=== PATIENT | male | born 1955 | race Caucasian/White ===

== ENCOUNTER 2022-06-20 20:10 | Observation (INO) | payer MEDICARE, MEDICAID, SELFPAY ==
[2022-06-20] VITALS (11 sets, daily range): BP systolic 117–142; BP diastolic 57–69; PULSE 62–71; RESP 12–17; TEMP 36.7; O2SAT 94–98
--- NOTE | ~2022-06-20 | CT_ITS ---
CT head without contrast Indication: Altered mental status COMPARISON: 12/23/2018 Technique: Serial scans were obtained through the brain without the administration of contrast. Dose reduction technique was used on this scan by utilizing automated exposure control and iterative recon struction technique. The dose-length product (DLP) was 681.00 mGy-cm. Findings: There is no evidence of intracranial hemorrhage, mass lesion, or acute infarct. Extensive c hronic infarct is unchanged, diffusely involving the left occipital and temporal lobes, as well as ex tensively involving the left frontal and parietal lobes. The ventricles and subarachnoid spaces are d ilated, consistent with mild atrophy. Low attenuation regions are seen within the periventricular wh ite matter bilaterally, likely representing changes from chronic microvascular ischemic disease. Ther e is no evidence of edema, mass effect or midline shift. The visualized paranasal sinuses and masto id air cells are clear. Impression: No intracranial hemorrhage, mass, or acute infarct. Extensive left-sided chronic infarct, as detailed above, unchanged. Atrophy and chronic white matter changes, as above. Reviewed, dictated and finalized at location M. OR [employer]LE DATABASE ADMINISTRATOR Impression: No intracranial hemorrhage, mass, or acute infarct. Extensive left-sided chronic infarct, as detailed above, unchanged. Atrophy and chronic white matter changes, as above.
--- NOTE | ~2022-06-20 | XR_ITS ---
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 RESULT: Lines, tubes, and devices: None. Lungs and pleura: Low volumes with crowding. Reticular opacities, cuffing, and indistinct vessels. S treaky bibasilar atelectasis/scar. Cardiomediastinal silhouette: Stable. Other: No acute osseous or upper abdominal finding. IMPRESSION: Prominent opacities may represent mild interstitial edema in the appropriate clinical context. Reviewed, dictated and finalized at location K. T PRODUCTION WORKER IMPRESSION: Prominent opacities may represent mild interstitial edema in the appropriate cl inical context.
[2022-06-20 20:57] LABS: Basophils Percent Auto 0.2 % (0.2-1.2); Eosinophils Absolute Auto 0.1 K/mm3 (0-0.3); Hematocrit 34.5 % (42.0-52.0); Hemoglobin 10.7 g/dL (14.0-18.0); Immature Granulocyte Absolute 0.03 K/mm3 (0.00-0.031); Immature Granulocyte Percent A 0.3 % (0-0.5); Lymphocytes Absolute Auto 0.71 K/mm3 (0.9-3.2); Lymphocytes Percent Auto 8.1 % (18.3-44.2); Mean Corpuscular Hemoglobin 26.6 pg (26-34); Mean Corpuscular Volume 85.6 fl (80-100); Mean Platelet Volume 10.2 fl (7.4-10.4); Monocytes Absolute Auto 0.5 K/mm3 (0.1-0.6); Monocytes Percent Auto 5.8 % (2.6-8.5); Neutrophils Absolute Auto 7.4 K/mm3 (1.3-6.7); Neutrophils Percent Auto 84.6 % (45.5-73.1); Platelet Count Result 177 k/mm3 (150-375); Red Blood Count 4.03 M/mm3 (4.6-6.20); Red Cell Distribution Width 15.1 % (11.5-14.5); White Blood Count 8.8 K/mm3 (4.5-10.0)
[2022-06-20 21:03] LABS: INR 1.2; Partial Thromboplastin Time 31.8 SECONDS (22.3-36.8); Prothrombin Time 14.7 Seconds (11.1-14.7)
[2022-06-20 21:30] LABS: Alanine Aminotransferase 20 U/L (6-50); Albumin Level 3.5 g/dL (3.5-5.1); Alkaline Phosphatase 66 U/L (38-126); Anion Gap 6 mmol/L (8-16); Aspartate Amino Transferase 24 U/L (17-59); Bilirubin,Total 0.6 mg/dL (0.2-1.3); Blood Urea Nitrogen 24 mg/dL (9-20); Carbon Dioxide 27 mmol/L (22-30); Chloride 105 mmol/L (98-107); Estimated Glomerular Filt Rate > 60; Glucose 114 mg/dL (65-110); Sodium 138 mmol/L (137-145)
[2022-06-20 21:39] LABS: Troponin I < 0.012 ng/mL (0.000-0.034)
[2022-06-21] VITALS (10 sets, daily range): BP systolic 102–141; BP diastolic 49–90; PULSE 72–115; RESP 14–18; TEMP 36.1–36.3; O2SAT 95–99; BMI 23.3
[2022-06-21 01:10] LABS: Appearance Urine Cloudy (Clear); Bilirubin Urine Negative (Negative); Blood Urine 1+ (Negative); Color Urine Yellow (Yellow); Glucose Urine UA Negative (Negative); Ketones Urine Negative (Negative); Leukocyte Esterase Ur 3+ LEU/UL (Negative); Nitrate Urine Positive (Negative); Protein Urine 1+ mg/dL (Negative); Specific Grav Ur 1.015 (1.001-1.035); pH Urine 8.5 (5.0-9.0)
[2022-06-21 01:15] LABS: Add Urine Microscopic? YES; Bacteria Urine Trace /hpf; Calcium Oxalate Crystals Urine Present /hpf; Mucus Urine Rare /lpf; Squamous Epithelial Cell Urine Rare /hpf (Few); WBC Clumps Urine Present /HPF; WBC Urine >75 /hpf
--- NOTE | 2022-06-21 01:49 | ED.GENADULT ---
HPI - General Adult General Chief complaint: Altered Mental Status Stated complaint: AMS Time Seen by Provider: 06/20/22 20:14 History of Present Illness HPI narrative: Patient is a 67-year-old male with history of CVA who presents ER with abrupt change in mental status. Sent from senior care. Was found to be hypoglycemic by the senior care and they administered oral glucagon. They felt he was still altered when EMS arrived. Patient unable to provide history due to previous CVA. Related Data Allergies Allergy/AdvReac Type Severity Reaction Status Date / Time No Known Allergies Allergy Unverified 12/23/18 16:37 Review of Systems Review of Systems: ROS unobtainable: Yes unobtainable due to medical condition PMFSH Past Medical History Medical History (Updated 06/21/22 @ 04:28 by Tavo Kim MD) COPD (chronic obstructive pulmonary disease) CVA (cerebral vascular accident) Heart failure History of type 2 diabetes mellitus Hyperlipidemia Hypertension Seizures Surgical History Surgical History (Updated 06/21/22 @ 04:28 by Tavo Kim MD) Surgical history unknown Exam Narrative: GENERAL: Chronically ill-appearing, well-nourished, and in no acute distress. HEAD: Normocephalic, atraumatic. EYES: PERRL and EOMI. ENT: Mucous membranes moist. CHEST: Clear to auscultation. No respiratory distress. HEART: Regular rate and rhythm. Normal peripheral pulses. ABDOMEN: Soft, nontender, nondistended. SKIN: Warm, dry, no rash. NEURO: Awake and alert, slowly follows commands. Can speak but is not oriented. PSYCH: Normal mood and affect. Course Course Emergency Course: Patient with UTI. Concerning that he is having hypoglycemia in setting of infection. Will observe and treat with IV antibiotics and acute 4-hour Accu-Cheks. No recurrent hypoglycemia in the ER. Vital Signs Vital signs: Vital Signs Temperature 98.0 F 06/20/22 20:05 Pulse Rate 70 06/20/22 20:05 Respiratory Rate 16 06/20/22 20:05 Blood Pressure 117/62 06/20/22 20:05 Pulse Oximetry 96 06/20/22 20:05 Oxygen Delivery Room Air 06/20/22 20:05 Temperature 98.0 F 06/20/22 20:05 Pulse Rate 74 06/21/22 00:45 Respiratory Rate 17 06/20/22 21:01 Blood Pressure 127/61 06/20/22 21:01 Pulse Oximetry 98 06/20/22 21:30 Oxygen Delivery Room Air 06/20/22 20:05 Medical Decision Making Vital Signs Vital Signs: Vital Signs Temperature 98.0 F 06/20/22 20:05 Pulse Rate 70 06/20/22 20:05 Respiratory Rate 16 06/20/22 20:05 Blood Pressure 117/62 06/20/22 20:05 Pulse Oximetry 96 06/20/22 20:05 Oxygen Delivery Room Air 06/20/22 20:05 Temperature 98.0 F 06/20/22 20:05 Pulse Rate 74 06/21/22 00:45 Respiratory Rate 17 06/20/22 21:01 Blood Pressure 127/61 06/20/22 21:01 Pulse Oximetry 98 06/20/22 21:30 Oxygen Delivery Room Air 06/20/22 20:05 Lab Data 06/20/22 20:40 06/20/22 20:40 Labs: Lab Results 06/20/22 06/20/22 06/20/22 Range/Units 20:40 20:40 20:40 WBC 8.8 (4.5-10.0) K/mm3 RBC 4.03 L (4.6-6.20) M/mm3 Hgb 10.7 L (14.0-18.0) g/dL Hct 34.5 L (42.0-52.0) % MCV 85.6 (80-100) fl MCH 26.6 (26-34) pg MCHC 31.0 L (32-36) g/dl RDW 15.1 H (11.5-14.5) % Plt Count 177 (150-375) k/mm3 MPV 10.2 (7.4-10.4) fl Immature Gran % (Auto) 0.3 (0-0.5) % Neut % (Auto) 84.6 H (45.5-73.1) % Lymph % (Auto) 8.1 L (18.3-44.2) % Scott % (Auto) 5.8 (2.6-8.5) % Eos % (Auto) 1.0 (0-4.4) % Baso % (Auto) 0.2 (0.2-1.2) % Lymph # (Auto) 0.71 L (0.9-3.2) K/mm3 Scott # (Auto) 0.5 (0.1-0.6) K/mm3 Eos # (Auto) 0.1 (0-0.3) K/mm3 Baso # (Auto) 0.0 (0.0-0.1) K/mm3 Abs Immat Gran (auto) 0.03 (0.00-0.031) K/mm3 Absolute Neuts (auto) 7.4 H (1.3-6.7) K/mm3 Absolute Nucleated RBC 0.0 (0.0-0.012) K/mm3 Nucleated RBC % 0.0 (0.0-0.2) % PT 14.7 (11
[2022-06-21 01:54] LABS: Glucose Point of Care 126 mg/dl (65-105)
[2022-06-21 03:10] LABS: Influenza A QL RT-PCR Negative (Negative); Influenza B QL RT-PCR Negative (Negative); SARS-CoV-2 RNA PCR Negative
--- NOTE | 2022-06-21 03:21 | PM.IMHP ---
H&P: HPI History of Present Illness Date/Time: 06/21/22 03:21 Chief Complaint: Altered mental status Narrative: Patient is confused, history is taken from the ER physician 67 years old gentleman with history of diabetes on insulin, history of CVA, brought to ED because of altered mental status. Patient was found confused, EMS was called. When EMS arrived, patient was found to have hypoglycemia, patient was confused. Patient was given glucagon. patient was brought to ED for evaluation. In the ED, patient was found have dehydration, pyuria on urinalysis, hypokalemia. When I saw and examined patient in the ED, patient was awake, not able to answer questions. Patient receive antibiotics in the ED. glucose level becomes normal. We admit patient for further evaluation and management Review of Systems Review of Systems: ROS unobtainable: Yes unobtainable due to mental status Meds Home Medications and Allergies Allergies Allergy/AdvReac Type Severity Reaction Status Date / Time No Known Allergies Allergy Unverified 12/23/18 16:37 Vital Signs Vital Signs - 24 hr 06/20/22 20:05 06/20/22 20:05 06/20/22 20:17 Temperature 98.0 F Pulse Rate 70 71 Respiratory Rate 16 Blood Pressure 117/62 142/69 H Pulse Oximetry 96 94 Oxygen Delivery Room Air 06/20/22 20:18 Temperature Pulse Rate Respiratory Rate Blood Pressure Pulse Oximetry 94 Oxygen Delivery Exam Narrative: GENERAL: Ill-appearing in no acute distress. Well-nourished. - EYES: EOMI. Anicteric. - HENT: Moist mucous membranes. - LUNGS: Clear to auscultation bilaterally, no wheezing, rhonchi, or rales. - CARDIOVASCULAR: Regular rate and rhythm. No murmur. No JVD. - ABDOMEN: Soft, non-tender and non-distended. No palpable masses. - EXTREMITIES: No edema. Peripheral pulses 2+. Non-tender. - NEUROLOGIC: No focal neurological deficits. CN II-XII grossly intact. - PSYCHIATRIC: Awake, not oriented x 3. Appropriate mood: Lethargic. - SKIN: No rashes or lesions. Warm. - LYMPH: No cervical lymphadenopathy. H&P: Results Labs Labs: Short CBC 06/20/22 Range/Units 20:40 WBC 8.8 (4.5-10.0) K/mm3 Hgb 10.7 L (14.0-18.0) g/dL Hct 34.5 L (42.0-52.0) % Plt Count 177 (150-375) k/mm3 BMP 06/20/22 20:40 Sodium 138 Potassium 3.0 L Chloride 105 Carbon Dioxide 27 BUN 24 H Creatinine 1.20 Glucose 114 H Calcium 8.0 L Cardiac Enzymes 06/20/22 Range/Units 20:40 Troponin I < 0.012 (0.000-0.034) ng/mL Liver Function 06/20/22 Range/Units 20:40 Total Bilirubin 0.6 (0.2-1.3) mg/dL AST 24 (17-59) U/L ALT 20 (6-50) U/L Alkaline Phosphatase 66 (38-126) U/L Albumin 3.5 (3.5-5.1) g/dL Urine 06/21/22 Range/Units 00:59 Urine Color Yellow (Yellow) Urine Appearance Cloudy H (Clear) Urine pH 8.5 (5.0-9.0) Ur Specific [place] 1.015 (1.001-1.035) Urine Protein 1+ H (Negative) mg/dL Urine Glucose (UA) Negative (Negative) mg/dL Assessment and Plan Assessment and plan (1) Acute encephalopathy: Code(s): G93.40 - Encephalopathy, unspecified Status: Acute Assessment and Plan: Confused Likely secondary to UTI, dehydration, hypoglycemia Neuro check Fall precaution Treat underlying disease (2) Acute UTI: Code(s): N39.0 - Urinary tract infection, site not specified Status: Acute Assessment and Plan: Start Levaquin IV Follow-up urine culture (3) Hypoglycemia: Code(s): E16.2 - Hypoglycemia, unspecified Status: Acute Assessment and Plan: Per ER physician report, patient took the insulin at home on medication list Hold long-acting insulin Hypoglycemia protocol is initiated (4) Dehydration: Code(s): E86.0 - Dehydration Status: Acute Assessment and Plan: Start normal saline IV (5) Type 2 diabetes mellitus: Code(s): E11.9 - Type 2 diabetes mellitus without complic
--- NOTE | 2022-06-21 04:42 | ADMGEN ---
This patient, Alexy Ochoa, was admitted to 3 [facility] Surg Room 314-01. Patient/family oriented to hospital policies and general routines including ID bracelet, bed and alarms, visiting hours, pain management, procedures, bathroom and other care routines, personal items, smoking policy, room service/diet, and visiting hours. Information on how to activate the Rapid Response Team has been discussed. Patient/Family are encouraged to report perceived risks to care and to ask questions if they do not understand what they are told or what they should do.
[2022-06-21] MEDS: SODIUM CHLORIDE 0.9% IV 1,000 ML 100 ML IV CONT (05:31)
[2022-06-21 07:20] LABS: Anion Gap 9 mmol/L (8-16); Blood Urea Nitrogen 28 mg/dL (9-20); Calcium 8.2 mg/dL (8.4-10.2); Carbon Dioxide 25 mmol/L (22-30); Chloride 107 mmol/L (98-107); Estimated CRCL calculation 52 ml/min; Estimated Glomerular Filt Rate 51; Glucose 130 mg/dL (65-110); Potassium 2.9 mmol/L (3.4-5.0); Sodium 141 mmol/L (137-145)
[2022-06-21 07:52] LABS: Glucose Point of Care 150 mg/dl (65-105)
[2022-06-21] MEDS: hydroCHLOROthiazide 12.5 MG CAPSULE PO (09:10)
[2022-06-21] MEDS: CLOPIDOGREL BISULFATE 75 MG TABLET PO (09:10)
[2022-06-21] MEDS: ATORVASTATIN 40 MG TABLET PO (09:10)
[2022-06-21] MEDS: LOSARTAN POTASSIUM 100 MG TABLET PO (09:10)
[2022-06-21] MEDS: levETIRAcetam 250 MG TABLET 750 MG PO ×2 (09:10→20:16)
[2022-06-21] MEDS: carvediloL 12.5 MG TABLET PO (09:11)
[2022-06-21] MEDS: ENOXAPARIN 40 MG/0.4 ML SYRINGE SUB-Q (09:11)
[2022-06-21] MEDS: CITALOPRAM HYDROBROMIDE 10 MG TABLET PO (09:11)
[2022-06-21] MEDS: POTASSIUM CHLORIDE 20 MEQ PACKET (FOR LIQUID) PO ×2 (09:11→16:35)
[2022-06-21] MEDS: cloNIDine HCL 0.1 MG TABLET PO (09:13)
[2022-06-21 11:22] LABS: Glucose Point of Care 228 mg/dl (65-105)
--- NOTE | 2022-06-21 12:14 | PM.IMPN ---
Progress Note: A&P Assessment and Plan (1) Acute encephalopathy: Code(s): G93.40 - Encephalopathy, unspecified Status: Acute Assessment and Plan: Confused on admission. Likely secondary to UTI, dehydration, hypoglycemia Continue Neuro checks Q shift. Per nursing staff, alf reports patient is A&O x2. Patient is minimally cooperative with physical exam and unable to determined full orientation and if currently at baseline or not. Head CT shows extensive left chronic infarctions to the left frontal and left parietal regions. No acute abnormality noted Fall precaution Treat underlying disease Consider MRI brain if neuro status changes or does not return to baseline within the next 24-48 hours (2) Acute UTI: Code(s): N39.0 - Urinary tract infection, site not specified Status: Acute Assessment and Plan: UA suggestive of infection on admission with positive nitrates, 3+ leukocytes, greater than 75 wbc's in clumps and trace bacteria. No previous urine cultures for evaluation. Patient was treated with Levaquin IV 750 mg, started upon admission 06/21/22. Patient received Rocephin IV in the ED. Follow-up urine culture and adjust antibiotics accordingly (3) Hypoglycemia: Code(s): E16.2 - Hypoglycemia, unspecified Status: Acute Assessment and Plan: Per ER physician report, a glucose was 50. Patient took the insulin at home and takes approximately 50 units Detemir SQ and 10 unit novolog with meals TID. Continue Accu-Cheks a.c. HS with low-dose NovoLog sliding scale with meals. Point of care glucose 130-228 in the past 24 hours and patient is eating. Initiate low-dose Lantus 10 units subQ at HS with hold parameters for glucose less than 120 Hypoglycemia protocol is initiated (4) Dehydration: Code(s): E86.0 - Dehydration Status: Acute Assessment and Plan: Patient appeared dehydrated upon admission per notes and noted to have acute UTI Continue normal saline IV maintenance fluids until patient is taking good p.o. Monitor strict intake and output Monitor vital signs (5) Type 2 diabetes mellitus: Code(s): E11.9 - Type 2 diabetes mellitus without complications Status: Chronic Assessment and Plan: Chronic, insulin-dependent on basal bolus insulin as described above. Patient was hypoglycemic upon admission and insulin has been adjusted as per listed above. (6) Hypokalemia: Code(s): E87.6 - Hypokalemia Status: Acute Assessment and Plan: Potassium 3.0 on admission. Patient was started on potassium chloride 20 mEq b.i.d. p.o. 06/21/2022 potassium 2.9. Check magnesium level which was 1.7. Give additional 40 mEq p.o. potassium chloride and 40 mEq IV potassium Monitor chemistry and supplement potassium as needed. Hold hydrochlorothiazide Plan Code status: Full code Disposition patient is from alf, return when medically stable Time Spent With Patient Time: 30 minutes of time spent with patient assessment, review of documentation, labs, vitals, imaging and nursing notes in the past 24 Subjective Date/time seen: 06/21/22 12:14 The this 67-year-old male with insulin-dependent diabetes mellitus, previous stroke, unspecified heart failure, seizure disorder, hypertension and hyperlipidemia. Patient presented to the emergency department for evaluation of altered mental status and hypoglycemia. His ED workup suggested dehydration and UTI. Patient found lying in bed. He is minimally cooperative with exam. He replies yeah to most questions asked, but does not elaborate on symptoms, i.e. c/o pain. Nursing reports the patient is tolerating full liquids and thinks he did not like the food he was brought yesterday for dinner. No s/s aspiration. Review of Systems Review of Systems: ROS unobtainable: Yes unobtainable due to mental status Exam Narrative: GENERAL: Chronically Ill-appearing in no acute distr
[2022-06-21] MEDS: INSULIN ASPART (*BKC) 100 UNITS/ML SUB-Q (12:34)
[2022-06-21] MEDS: POTASSIUM CHLORIDE 20 MEQ TABLET 40 MEQ PO (12:34)
[2022-06-21] MEDS: MICONAZOLE NITRATE 2% CREAM 30 GM TUBE 1 APPLIC TOPICAL ×2 (12:34→20:40)
[2022-06-21] MEDS: POTASSIUM CHLORIDE INJ 40 MEQ in SODIUM CHLORIDE 0.9% IV 500 ML 130 MEQ IVPB (12:39)
[2022-06-21 13:09] LABS: Magnesium 1.7 mg/dL (1.6-2.3)
[2022-06-21 16:15] LABS: Glucose Point of Care 183 mg/dl (65-105)
[2022-06-21 17:06] LABS: Potassium 4.5 mmol/L (3.4-5.0)
[2022-06-21] MEDS: HYDROcodone/acetaminophen (*CRX) 5-325 MG TABLET 1 TAB PO (20:15)
[2022-06-21] MEDS: INSULIN GLARGINE (*BKC) 100 UNITS/ML 10 UNITS SUB-Q (20:38)
[2022-06-21 21:01] LABS: Glucose Point of Care 163 mg/dl (65-105)
--- NOTE | 2022-06-22 01:46 | PC.NURSE ---
Patient coughing with thin liquids. Has a very wet cough and crackles upon auscultation. Dr. Badillo notified. New orders received to put patient NPO until speech therapy can eval.
--- NOTE | 2022-06-22 05:26 | PC.NURSE ---
Patient refusing IV fluids after multiple attempts. Patient refuses to get IV infusion of levaquin. Patient became agitated and started yelling I said NO at this nurse when attempting to hook IV up to fluids/antibiotics.
--- NOTE | 2022-06-22 05:31 | PC.NURSE ---
Spoke with Dr. Badillo about patient refusing IV fluids/antibiotics. Dr. Badillo says okay to wait until ST sees patient to determine of okay for PO levaquin.
[2022-06-22 06:50] LABS: Basophils Absolute Auto 0.1 K/mm3 (0.0-0.1); Basophils Percent Auto 0.6 % (0.2-1.2); Eosinophils Absolute Auto 0.1 K/mm3 (0-0.3); Eosinophils Percent Auto 0.5 % (0-4.4); Hematocrit 34.9 % (42.0-52.0); Hemoglobin 10.7 g/dL (14.0-18.0); Immature Granulocyte Absolute 0.04 K/mm3 (0.00-0.031); Immature Granulocyte Percent A 0.4 % (0-0.5); Lymphocytes Absolute Auto 1.18 K/mm3 (0.9-3.2); Lymphocytes Percent Auto 10.9 % (18.3-44.2); Mean Corpuscular HGB Conc 30.7 g/dl (32-36); Mean Corpuscular Hemoglobin 27.3 pg (26-34); Mean Platelet Volume 10.4 fl (7.4-10.4); Monocytes Absolute Auto 1.2 K/mm3 (0.1-0.6); Monocytes Percent Auto 10.8 % (2.6-8.5); Neutrophils Absolute Auto 8.3 K/mm3 (1.3-6.7); Neutrophils Percent Auto 76.8 % (45.5-73.1); Platelet Count Result 141 k/mm3 (150-375); Red Blood Count 3.92 M/mm3 (4.6-6.20); White Blood Count 10.8 K/mm3 (4.5-10.0)
[2022-06-22 06:59] LABS: Alanine Aminotransferase 18 U/L (6-50); Albumin Level 3.1 g/dL (3.5-5.1); Alkaline Phosphatase 58 U/L (38-126); Anion Gap 3 mmol/L (8-16); Aspartate Amino Transferase 31 U/L (17-59); Bilirubin,Total 0.6 mg/dL (0.2-1.3); Blood Urea Nitrogen 29 mg/dL (9-20); Calcium 7.4 mg/dL (8.4-10.2); Carbon Dioxide 24 mmol/L (22-30); Chloride 105 mmol/L (98-107); Estimated CRCL calculation 56 ml/min; Estimated Glomerular Filt Rate 55; Glucose 146 mg/dL (65-110); Potassium 3.9 mmol/L (3.4-5.0); Sodium 132 mmol/L (137-145)
[2022-06-22 07:48] LABS: Glucose Point of Care 202 mg/dl (65-105)
[2022-06-22 08:46] VITALS: PULSE 80
[2022-06-22] MEDS: CLOPIDOGREL BISULFATE 75 MG TABLET PO (08:46)
[2022-06-22] MEDS: carvediloL 12.5 MG TABLET PO (08:46)
[2022-06-22] MEDS: ATORVASTATIN 40 MG TABLET PO (08:46)
[2022-06-22] MEDS: ENOXAPARIN 40 MG/0.4 ML SYRINGE SUB-Q (08:46)
[2022-06-22] MEDS: CITALOPRAM HYDROBROMIDE 10 MG TABLET PO (08:46)
[2022-06-22] MEDS: levETIRAcetam 250 MG TABLET 750 MG PO ×2 (08:46→20:04)
[2022-06-22] MEDS: LOSARTAN POTASSIUM 100 MG TABLET PO (08:47)
[2022-06-22] MEDS: POTASSIUM CHLORIDE 20 MEQ PACKET (FOR LIQUID) PO ×2 (08:48→17:10)
[2022-06-22] MEDS: MICONAZOLE NITRATE 2% CREAM 30 GM TUBE 1 APPLIC TOPICAL ×2 (08:48→20:04)
--- NOTE | 2022-06-22 08:48 | PM.IMPN ---
Progress Note: A&P Assessment and Plan (1) Acute encephalopathy: Code(s): G93.40 - Encephalopathy, unspecified Status: Acute Assessment and Plan: Confused on admission. Likely secondary to UTI, dehydration, hypoglycemia Continue Neuro checks Q shift. Per nursing staff, skilled nursing reports patient is A&O x2. Patient is minimally cooperative with physical exam and unable to determined full orientation and if currently at baseline or not. Head CT shows extensive left chronic infarctions to the left frontal and left parietal regions. No acute abnormality noted Fall precaution Treat underlying disease Appears at baseline. (2) Acute UTI: Code(s): N39.0 - Urinary tract infection, site not specified Status: Acute Assessment and Plan: UA suggestive of infection on admission with positive nitrates, 3+ leukocytes, greater than 75 wbc's in clumps and trace bacteria. No previous urine cultures for evaluation. Patient was treated with Levaquin IV 750 mg, started upon admission 06/21/22. Patient received Rocephin IV in the ED. urine culture with gram negative bacilli 100,000 CFU. final sensitivities pending.adjust antibiotics accordingly 06/22/22 will transition to oral levaquin 750 mg Q24 hours today (3) Hypoglycemia: Code(s): E16.2 - Hypoglycemia, unspecified Status: Acute Assessment and Plan: Per ER physician report, a glucose was 50. Patient took the insulin at home and takes approximately 50 units Detemir SQ and 10 unit novolog with meals TID. Continue Accu-Cheks a.c. HS with low-dose NovoLog sliding scale with meals. Point of care glucose 190-200s in the past 24 hours and patient is eating. increase Lantus 30 units subQ at HS with hold parameters Hypoglycemia protocol is initiated (4) Dehydration: Code(s): E86.0 - Dehydration Status: Acute Assessment and Plan: Patient appeared dehydrated upon admission per notes and noted to have acute UTI Saline lock IV fluids 06/22/22. Monitor strict intake and output Monitor vital signs (5) Type 2 diabetes mellitus: Code(s): E11.9 - Type 2 diabetes mellitus without complications Status: Chronic Assessment and Plan: Chronic, insulin-dependent on basal bolus insulin as described above. Patient was hypoglycemic upon admission and insulin has been adjusted as per listed above. (6) Hypokalemia: Code(s): E87.6 - Hypokalemia Status: Acute Assessment and Plan: Potassium 3.0 on admission. Patient was started on potassium chloride 20 mEq b.i.d. p.o. 06/21/2022 potassium 2.9. Check magnesium level which was 1.7. Give additional 40 mEq p.o. potassium chloride and 40 mEq IV potassium Monitor chemistry and supplement potassium as needed. 06/22 K 3.9, resume HCTZ Plan Code status: Full code Disposition patient is from skilled nursing, return when medically stable. Plan to discharge patient tomorrow if cultures show sensitivity to levaquin and patient continues to be stable. Subjective Date/time seen: 06/22/22 08:48 Interval history: Patient is a 67-year-old male with insulin-dependent diabetes mellitus, previous stroke, unspecified heart failure, seizure disorder, hypertension and hyperlipidemia.? Patient presented to the emergency department for evaluation of altered mental status and hypoglycemia.? His ED workup suggested dehydration and UTI. Patient found sleeping. He arouses easily and immediately reports no when asked questions. He is intermittently combative and did not participate with barium swallow study today. Nursing reports he is able to tolerate thickened liquids without s/s coughing. No fevers overnight. Review of Systems Review of Systems: ROS unobtainable: Yes unobtainable due to mental status Exam Narrative: GENERAL: no acute distress. Nontoxic appearing HEENT: pupils equal and round. Patient is tracking. Mucous membranes moist and p
--- NOTE | 2022-06-22 09:20 | PCSTNOTE ---
Bedside swallow eval completed this am; MBS recommended. Refer to EMR for results and recommendations. Level 6 diet with mildly thick liquids until MBS is completed.
--- NOTE | 2022-06-22 11:18 | PCOTNOTE ---
Attempted OT evaluation, despite education on participating with OT patient yelled NO! at therapist. Will follow.
--- NOTE | 2022-06-22 11:27 | PCPTNOTE ---
Attempted PT evaluation, pt refused. RN aware. Will follow.
[2022-06-22 11:56] LABS: Glucose Point of Care 195 mg/dl (65-105)
[2022-06-22] MEDS: cloNIDine HCL 0.1 MG TABLET PO (13:49)
[2022-06-22 16:43] LABS: Glucose Point of Care 191 mg/dl (65-105)
[2022-06-22 20:00] VITALS: O2SAT 98
[2022-06-22] MEDS: INSULIN GLARGINE (*BKC) 100 UNITS/ML 30 UNITS SUB-Q (20:40)
[2022-06-22 20:45] LABS: Glucose Point of Care 235 mg/dl (65-105)
[2022-06-23 08:04] LABS: Glucose Point of Care 142 mg/dl (65-105)
[2022-06-23 09:37] VITALS: PULSE 78
[2022-06-23] MEDS: LOSARTAN POTASSIUM 100 MG TABLET PO (09:37)
[2022-06-23] MEDS: hydroCHLOROthiazide 12.5 MG CAPSULE PO (09:37)
[2022-06-23] MEDS: carvediloL 12.5 MG TABLET PO (09:37)
[2022-06-23] MEDS: levoFLOXacin 750 MG TABLET PO (09:38)
[2022-06-23] MEDS: levETIRAcetam 250 MG TABLET 750 MG PO (09:38)
[2022-06-23] MEDS: ATORVASTATIN 40 MG TABLET PO (09:38)
[2022-06-23] MEDS: cloNIDine HCL 0.1 MG TABLET PO (09:38)
[2022-06-23] MEDS: ENOXAPARIN 40 MG/0.4 ML SYRINGE SUB-Q (09:38)
[2022-06-23] MEDS: CLOPIDOGREL BISULFATE 75 MG TABLET PO (09:38)
[2022-06-23] MEDS: POTASSIUM CHLORIDE 20 MEQ PACKET (FOR LIQUID) PO (09:38)
[2022-06-23] MEDS: MICONAZOLE NITRATE 2% CREAM 30 GM TUBE 1 APPLIC TOPICAL (09:38)
[2022-06-23] MEDS: CITALOPRAM HYDROBROMIDE 10 MG TABLET PO (09:38)
--- NOTE | 2022-06-23 09:39 | PCPTNOTE ---
Attempted PT evaluation, pt would not look at therapist and just shook his head no. Hospitalist contacted and agreed to therapy orders being discharge at this time due to pt refusing. RN aware.
--- NOTE | 2022-06-23 10:46 | PCOTNOTE ---
Pt. refusing therapy services. Hospitalist contacted and agreed to therapy orders being discharge at this time due to pt refusing. RN aware.
[2022-06-23 11:48] LABS: Glucose Point of Care 157 mg/dl (65-105)
--- NOTE | 2022-06-23 14:41 | PM.DS ---
DS: Admitting Diagnosis Discharge Date 06/23/2022 1441 Admitting Diagnosis Acute metabolic encephalopathy Urinary tract infection,?Acute Hypoglycemia Dehydration Type 2 diabetes mellitus, chronic Hypokalemia DS: Discharge Diagnosis Discharge Diagnosis (1) Acute encephalopathy: Code(s): G93.40 - Encephalopathy, unspecified Status: Acute Assessment and Plan: Confused on admission. Likely secondary to UTI, dehydration, hypoglycemia Continue Neuro checks Q shift. Per nursing staff, longterm reports patient is A&O x2. Patient is minimally cooperative with physical exam and unable to determined full orientation and if currently at baseline or not. Head CT shows extensive left chronic infarctions to the left frontal and left parietal regions. No acute abnormality noted Appeared at baseline at discharge. (2) Acute UTI: Code(s): N39.0 - Urinary tract infection, site not specified Status: Acute Assessment and Plan: UA suggestive of infection on admission with positive nitrates, 3+ leukocytes, greater than 75 wbc's in clumps and trace bacteria. No previous urine cultures for evaluation. Patient was treated with Levaquin IV 750 mg, started upon admission 06/21/22. Patient received Rocephin IV in the ED. urine culture with gram negative bacilli 100,000 CFU. final sensitivities pending.adjust antibiotics accordingly 06/22/22 transitioned to oral levaquin 750 mg Q24 hours as patient clinically improving. (3) Hypoglycemia: Code(s): E16.2 - Hypoglycemia, unspecified Status: Resolved Assessment and Plan: Per ER physician report, a glucose was 50. Patient took the insulin at home and takes approximately 50 units Detemir SQ and 10 unit novolog with meals TID. Continue Accu-Cheks a.c. HS with low-dose NovoLog sliding scale with meals. Point of care glucose 190-200s in the past 24 hours and patient is eating. increase Lantus 30 units subQ at HS with hold parameters Hypoglycemia protocol is initiated Lantus home dose decreased to 30 units Detemir at hs. (4) Dehydration: Code(s): E86.0 - Dehydration Status: Resolved Assessment and Plan: Patient appeared dehydrated upon admission per notes and noted to have acute UTI Saline lock IV fluids 06/22/22. Monitor strict intake and output Monitor vital signs (5) Type 2 diabetes mellitus: Code(s): E11.9 - Type 2 diabetes mellitus without complications Status: Chronic Assessment and Plan: Chronic, insulin-dependent on basal bolus insulin as described above. Patient was hypoglycemic upon admission and insulin has been adjusted as per listed above. (6) Hypokalemia: Code(s): E87.6 - Hypokalemia Status: Resolved Assessment and Plan: Potassium 3.0 on admission. Patient was started on potassium chloride 20 mEq b.i.d. p.o. 06/21/2022 potassium 2.9. Check magnesium level which was 1.7. Give additional 40 mEq p.o. potassium chloride and 40 mEq IV potassium Monitored chemistry and supplement potassium as needed. 06/22 K 3.9, resume HCTZ (7) Dysphagia: Code(s): R13.10 - Dysphagia, unspecified Status: Acute Assessment and Plan: unclear acute versus chronic, patient noted to have coughing with drinking. Speech therapy consulted and modified barium swallow study requested, however, patient was combative and testing was stopped. He was advanced to nectar thickened liquids and aspiration precautions. Patient appeared to tolerate well. DS: Summary Hospital Course Reason for hospitalization: altered mental status Hospital Course: Patient is a 67-year-old male with insulin-dependent diabetes mellitus, previous stroke, unspecified heart failure, seizure disorder, hypertension and hyperlipidemia.? Patient presented to the emergency department for evaluation of altered mental status and hypoglycemia.? His ED workup suggested hypoglycemia, dehydration and UT
[2022-06-23 16:36] LABS: EDCOVIDSCREEN Negative (Negative)
--- NOTE | 2022-06-23 17:52 | PC.NURSE ---
Attempted to call [facility] at 1700, 1725 and 1750 with no answer. Had Faxed the discharge education at 1700 and covid results. Charge nurse stated go ahead and send patient due to him coming from facility.
== END 2022-06-23 18:40 ==
LOC: ANHED 21:13 → ANH3MEDSUR 06-21 03:19 → ANHIMU 06-26 10:45
PROVIDERS: Nurse Practitioner Family; Admitting Provider Hospitalist; Emergency Provider Emergency Medicine; PCP Family Medicine; Visit Provider Student in an Organized Health Care Education/Training Program
DX: G93.40 Encephalopathy, unspecified (principal); N39.0 Urinary tract infection, site not specified; E86.0 Dehydration; E11.649 Type 2 diabetes mellitus with hypoglycemia without coma; E87.6 Hypokalemia; Z79.4 Long term (current) use of insulin; R13.10 Dysphagia, unspecified; E78.5 Hyperlipidemia, unspecified; G40.909 Epilepsy, unspecified, not intractable, without status epilepticus; I50.9 Heart failure, unspecified; I11.0 Hypertensive heart disease with heart failure; Z86.73 Personal history of transient ischemic attack (TIA), and cerebral infarction without residual deficits; Z20.822 Contact with and (suspected) exposure to COVID-19
CPT/HCPCS: 36415; 70450; 71046; 80048; 80053; 81001; 82948; 83735; 84132; 84484; 85025; 85610; 85730; 87077; 87086; 87186; 87426; 87636; 92610; 96365; 96366; 96367; 96372; 96375; 99285; A9270; C9803; G0378; J0696; J1650; J1815; J1956; J3480; J7030; J7040

== ENCOUNTER 2022-11-22 08:11 | Emergency (ER) | payer MEDICARE, MEDICAID, SELFPAY ==
--- NOTE | ~2022-11-22 | CT_ITS ---
EXAMINATION: CT brain wo con INDICATION: Head injury COMPARISON: 06/21/2022 TECHNIQUE: Standard unenhanced head CT. The dose-length product (DLP) was 681.00 mGy-cm. The mA was a djusted according to patient size. Iterative reconstruction technique was employed. FINDINGS: There is no acute intraparenchymal hemorrhage. No evidence of mass lesion. No evidence of a cute infarction. There is a large area of chronic encephalomalacia involving the left frontal, pariet al, temporal, and occipital lobes as well as left insula. Again noted is an old infarct of the right basal ganglia. There is mild periventricular and subcortical hypodensity probably related to small ve ssel ischemic disease. Intracranial calcified cerebral atherosclerosis is noted. There are no extra-a xial collections. There is no mass effect or midline shift. The orbits and soft tissues are unremarka ble. There is mild mucosal thickening of the paranasal sinuses. IMPRESSION: 1. Areas of prior infarction without acute intracranial abnormality. 2. Age related findings. Reviewed, dictated and finalized at location []
--- NOTE | ~2022-11-22 | CT_ITS ---
EXAMINATION: CT cervical spine wo con DATE: 11/22/2022 09:27 INDICATION: Head injury TECHNIQUE: Computed tomography (CT) of the cervical spine was performed without intravenous contrast. The dose-length product (DLP) was 524.63 mGy-cm. Automated exposure control and iterative reconstruc tion technique were employed. COMPARISON: 12/23/2018 FINDINGS: Bone alignment is normal. There is no fracture. The vertebral body heights are maintained. There is mild loss of intervertebral disc space height throughout the cervical spine. Multilevel mild to moderate facet and uncovertebral joint osteoarthritis is seen. There is a left mastoid effusion. IMPRESSION: 1. Mild cervical spondylosis without acute findings or significant interval change. Reviewed, dictated and finalized at location [] IMPRESSION: 1. Mild cervical spondylosis without acute findings or significant interval chapis nge.
[2022-11-22 08:19] VITALS: BP 135/87; PULSE 57; RESP 12; TEMP 36.2; O2SAT 98
--- NOTE | 2022-11-22 09:08 | ED.FALL ---
HPI - Fall General Chief Complaint: Fall Stated Complaint: fall Time Seen by Provider: 11/22/22 08:53 History of Present Illness HPI Narrative: Patient is a 67-year-old male with a history of CVA currently on anticoagulation here from his nursing facility after a fall with head injury. Patient denies any specific complaints. He was sent here for head imaging giving his history of anticoagulation. Spoke with the nurse who took report; this was a witnessed fall at his facility. Apparently, patient has frequent fits of anger where he throws himself out of his wheelchair. He had an episode this morning causing him to fall backwards out of his wheelchair and hit his head. No LOC. No lacerations or other injuries sustained. Related Data Home Medications Medication Instructions Recorded Confirmed acetaminophen 160 mg/5 mL oral 640 mg PO QID PRN Pain 06/21/22 06/21/22 suspension atorvastatin 40 mg tablet 40 mg PO DAILY 06/21/22 06/21/22 carvedilol 12.5 mg tablet 12.5 mg PO DAILY 06/21/22 06/21/22 citalopram 10 mg tablet 10 mg PO DAILY 06/21/22 06/21/22 clonidine HCl 0.1 mg tablet 0.1 mg PO DAILY 06/21/22 06/21/22 clopidogrel 75 mg tablet 75 mg PO DAILY 06/21/22 06/21/22 clotrimazole 1 % topical cream 1 applic topical BID PRN ringworm 06/21/22 06/21/22 glucagon 1 mg solution for 1 mg IM TID PRN Hypoglycemia 06/21/22 06/21/22 injection (Glucagon Emergency Kit) hydrochlorothiazide 12.5 mg tablet 12.5 mg PO DAILY 06/21/22 06/21/22 insulin aspart U-100 100 unit/mL 10 unit subcut TIDWM 06/21/22 06/21/22 subcutaneous solution (Novolog U-100 Insulin aspart) levetiracetam 750 mg tablet 750 mg PO BID 06/21/22 06/21/22 losartan 100 mg tablet 100 mg PO DAILY 06/21/22 06/21/22 Allergies Allergy/AdvReac Type Severity Reaction Status Date / Time No Known Allergies Allergy Verified 11/22/22 09:53 Review of Systems Review of Systems: Gen.: Denies fevers or chills Eyes: Denies eye pain or visual change ENT: Denies congestion Respiratory: Denies shortness of breath or cough CV: Denies chest pain or palpitations GI: Denies abdominal pain nausea, emesis or diarrhea denies burning, urgency, frequency or hematuria Musculoskeletal: Denies back pain or muscle pain Neuro: Denies numbness, tingling, weakness or focal weakness Skin: Denies rash Except as documented, all other systems reviewed and negative [facility] Past Medical History Medical History (Updated 11/22/22 @ 09:53 by Farrukh Carlton) COPD (chronic obstructive pulmonary disease) CVA (cerebral vascular accident) Heart failure History of type 2 diabetes mellitus Hyperlipidemia Hypertension Seizures Surgical History Surgical History (Updated 11/22/22 @ 09:53 by Farrukh Carlton) Surgical history unknown Social History Social History (System 11/22/22 @ 09:53 by Farrukh Carlton) Smoking status: Current every day smoker Tobacco type: cigarettes Alcohol intake: unknown Substance use: unknown Spiritual care concerns: No Exam Narrative: APPEARANCE: Alert male in no acute distress, shakes head yes or no as answers to questions, when he does speak there is profound dysarthria Head: Normocephalic and atraumatic. EYES: PERRLA/EOMI, conjunctivae clear NOSE: No nasal drainage EARS: External ear normal in appearance THROAT: Oropharynx is clear. Mucous membranes are moist. NECK: Supple. No adenopathy, no masses. RESPIRATORY: Airway patent, respirations nonlabored. Clear to auscultation bilaterally, no rales, rhonchi, wheezing. CARDIOVASCULAR: Regular rate and rhythm without murmurs, rubs, or gallops. ABDOMINAL: Normoactive bowel sounds. Soft, nontender, nondistended. No rebound tenderness or guarding. MUSCULOSKELETAL: Patient winces with palpation of the lower cervical spine. No step-offs. There is no apparent tenderness of the thoracic or lumbar spine. There is no tenderness to palpation along the bilateral humeral heads, elbows, wrists or hands. No tenderness to p
--- NOTE | 2022-11-22 09:25 | PC.NURSE ---
Pt to CT scan via stretcher at this time.
[2022-11-22 10:32] VITALS: BP 136/84; PULSE 55; RESP 12; O2SAT 97
== END 2022-11-22 11:11 ==
PROVIDERS: Emergency Provider Physician Assistant; PCP Hospitalist
DX: S09.90XA Unspecified injury of head, initial encounter (principal); J44.9 Chronic obstructive pulmonary disease, unspecified; I11.0 Hypertensive heart disease with heart failure; I50.9 Heart failure, unspecified; E11.9 Type 2 diabetes mellitus without complications; E78.5 Hyperlipidemia, unspecified; F17.210 Nicotine dependence, cigarettes, uncomplicated; Z86.73 Personal history of transient ischemic attack (TIA), and cerebral infarction without residual deficits; Z79.01 Long term (current) use of anticoagulants; Z79.4 Long term (current) use of insulin; W05.0XXA Fall from non-moving wheelchair, initial encounter
CPT/HCPCS: 70450; 72125; 99284

== ENCOUNTER 2023-02-23 17:53 | Inpatient (IN) | payer MEDICARE, MEDICAID, SELFPAY ==
[2023-02-23] VITALS (19 sets, daily range): BP systolic 111–184; BP diastolic 41–81; PULSE 85–103; RESP 16–30; TEMP 36.6–37.1; O2SAT 92–100; BMI 30.1
--- NOTE | ~2023-02-23 | CT_ITS ---
EXAMINATION: CT brain wo con INDICATION: Altered mental status COMPARISON: 11/22/2022 TECHNIQUE: Standard unenhanced head CT. The dose-length product (DLP) was 681.00 mGy-cm. The mA was a djusted according to patient size. Iterative reconstruction technique was employed. FINDINGS: No acute intraparenchymal hemorrhage. No evidence of mass lesion. No evidence of acute infa rction. Again noted is a chronic large infarct involving the left frontal, parietal, temporal, and oc cipital lobes as well as left insula. An old infarct of the right basal ganglia is also noted. There is ex vacuo enlargement of the left lateral ventricle. There is mild periventricular and subcortical hypodensity probably related to small vessel ischemic disease. Intracranial calcified cerebral athero sclerosis is noted. No extra-axial collections. No mass effect or midline shift. The orbits and soft tissues are unremarkable. There is mild mucosal thickening of the paranasal sinuses. IMPRESSION: 1. Areas of prior infarction without acute intracranial abnormality. 2. Age related findings. Reviewed, dictated and finalized at location F.
--- NOTE | ~2023-02-23 | XR_ITS ---
EXAMINATION: XR chest 1V INDICATION: Altered mental status TECHNIQUE: AP view of the chest is obtained. COMPARISON: 06/20/2022 FINDINGS: The lungs are free of acute opacities. No pleural effusion or pneumothorax. The cardiomedia stinal silhouette is normal. IMPRESSION: 1. No acute cardiopulmonary abnormality. Reviewed, dictated and finalized at location F.
--- NOTE | ~2023-02-23 | CT_ITS ---
EXAMINATION: CT abdomen pelvis w con INDICATION: Altered mental status TECHNIQUE: Computed tomographic images of the abdomen and pelvis were obtained after the administrati on of 100 cc of Omnipaque 350 intravenous contrast. The dose-length product (DLP) was 1095.58 mGy-cm. Automated exposure control and iterative reconstruction technique were employed. COMPARISON: None available FINDINGS: Minimal dependent atelectasis is present in the lung bases. The heart size is normal. Evalu ation of the lung bases is limited by respiratory motion. The liver, spleen, pancreas, gallbladder, a nd adrenal glands are normal. There is a 4 mm nonobstructing stone right kidney. There is patchy perf usion of the right kidney. There is urothelial enhancement of the right renal pelvis as well as the r ight ureter. There is diffuse wall thickening of the urinary bladder. The bladder is decompressed by Lambert catheter. Cysts of the right kidney upper pole measure up to 2 cm. There is a 3.1 cm fusiform i nfrarenal abdominal aortic aneurysm. No pathologically enlarged abdominal or pelvic lymph nodes are i dentified. No free intraperitoneal gas or evidence of bowel obstruction. The appendix is normal. Ther e is fecal impaction of the rectum. IMPRESSION: 1. Probable cystitis with ascending urinary tract infection and right pyelonephritis. 2. Fecal impaction of the rectum. 3. Infrarenal abdominal aortic aneurysm. Reviewed, dictated and finalized at location F. IMPRESSION: 1. Probable cystitis with ascending urinary tract infection and right pyeloneph ritis. 2. Fecal impaction of the rectum. 3. Infrarenal abdominal aortic aneurysm.
--- NOTE | 2023-02-23 17:59 | ECG_ITS ---
Measurements Intervals [place] Rate: 97 P: 35 AR: 166 QRS: -24 QRSD: 109 T: 75 QT: 362 QTc: 461 Interpretive Statements SINUS RHYTHM DELAYED PRECORDIAL R/S TRANSITION INFERIOR INFARCT, AGE INDETERMINATE BORDERLINE ST-T WAVE ABNORMALITY- HIGH LATERAL LEADS ABNORMAL ECG NO PREVIOUS ECG AVAILABLE FOR COMPARISON Electronically Signed On 02-23-2023 20:12:58 CDT by Ovidio Gutierres D.O.
[2023-02-23 18:11] LABS: Basophils Percent Auto 0.3 % (0.2-1.2); Eosinophils Percent Auto 0.1 % (0-4.4); Hematocrit 36.3 % (42.0-52.0); Hemoglobin 11.9 g/dL (14.0-18.0); Immature Granulocyte Absolute 0.08 K/mm3 (0.00-0.031); Immature Granulocyte Percent A 0.6 % (0-0.5); Lymphocytes Absolute Auto 0.93 K/mm3 (0.9-3.2); Lymphocytes Percent Auto 6.7 % (18.3-44.2); Mean Corpuscular HGB Conc 32.8 g/dl (32-36); Mean Corpuscular Volume 85.4 fl (80-100); Mean Platelet Volume 10.9 fl (7.4-10.4); Monocytes Absolute Auto 1.3 K/mm3 (0.1-0.6); Monocytes Percent Auto 9.1 % (2.6-8.5); Neutrophils Absolute Auto 11.6 K/mm3 (1.3-6.7); Neutrophils Percent Auto 83.2 % (45.5-73.1); Platelet Count Result 174 k/mm3 (150-375); Red Blood Count 4.25 M/mm3 (4.6-6.20); Red Cell Distribution Width 14.6 % (11.5-14.5)
--- NOTE | 2023-02-23 18:20 | PC.NURSE ---
ATTEMPTED TO CHANGE PT INTO A GOWN AND SLAPPED MY HANDS AWAY AND THEN HE GRABBED MY HAND. WILL CHANGE PT INTO GOWN WHEN HE IS LESS AGITATED
[2023-02-23 18:32] LABS: INR 1.2; Prothrombin Time 15.4 Seconds (11.1-14.7)
[2023-02-23 18:33] LABS: Partial Thromboplastin Time 33.4 SECONDS (22.3-36.8)
[2023-02-23 18:59] LABS: Alanine Aminotransferase 23 U/L (6-50); Alkaline Phosphatase 79 U/L (38-126); Anion Gap 8 mmol/L (8-16); Aspartate Amino Transferase 52 U/L (17-59); Bilirubin,Total 1.2 mg/dL (0.2-1.3); Blood Urea Nitrogen 28 mg/dL (9-20); Calcium 8.4 mg/dL (8.4-10.2); Carbon Dioxide 26 mmol/L (22-30); Chloride 103 mmol/L (98-107); Estimated Glomerular Filt Rate 43; Glucose 157 mg/dL (65-110); Potassium 3.5 mmol/L (3.4-5.0); Sodium 137 mmol/L (137-145)
--- NOTE | 2023-02-23 19:09 | PC.NURSE ---
Report received from CRISTINA Collins. Assumed care of patient at this time.
--- NOTE | 2023-02-23 19:33 | PC.NURSE ---
Patient taken to imaging at this time via stretcher.
[2023-02-23 20:38] LABS: Lactic Acid Reflex 1.3 mmol/L (0.7-2.0)
[2023-02-23 20:48] LABS: Acetaminophen < 10 ug/mL (10-30); Ethanol < 10 mg/dL (<10); Salicylate < 1.0 mg/dL (2-20)
[2023-02-23 20:49] LABS: Troponin I 0.025 ng/mL (0.000-0.034)
[2023-02-23 20:58] LABS: Creatine Kinase 2515 U/L (55-170)
[2023-02-23] MEDS: SODIUM CHLORIDE 0.9% IV 1,000 ML 999 ML IV CONT (21:20)
--- NOTE | 2023-02-23 21:27 | ED.AMS ---
HPI - Altered Mental Status General Chief Complaint: Altered Mental Status Stated Complaint: altered mental status Time Seen by Provider: 02/23/23 19:04 History of Present Illness HPI narrative: HPI limited due to patient's altered mental status. This is a 68-year-old male, past history of diabetes, brought in by EMS from [facility] for altered mental status. The patient reportedly seems normal was around noon. Since then, the patient was seen grabbing at things that were not there. On my evaluation, the patient does not answer questions. Related Data Home Medications Medication Instructions Recorded Confirmed acetaminophen 160 mg/5 mL oral 640 mg PO QID PRN Pain 06/21/22 02/23/23 suspension atorvastatin 40 mg tablet 40 mg PO DAILY 06/21/22 02/23/23 carvedilol 12.5 mg tablet 12.5 mg PO BID 06/21/22 02/23/23 citalopram 10 mg tablet 10 mg PO DAILY 06/21/22 02/23/23 clonidine HCl 0.1 mg tablet 0.1 mg PO DAILY 06/21/22 02/23/23 clopidogrel 75 mg tablet 75 mg PO DAILY 06/21/22 02/23/23 clotrimazole 1 % topical cream 1 applic topical BID PRN ringworm 06/21/22 02/23/23 glucagon 1 mg solution for 1 mg IM TID PRN Hypoglycemia 06/21/22 02/23/23 injection (Glucagon Emergency Kit) hydrochlorothiazide 12.5 mg tablet 12.5 mg PO DAILY 06/21/22 02/23/23 insulin aspart U-100 100 unit/mL See Protocol subcut TIDWM 06/21/22 02/23/23 subcutaneous solution (Novolog U-100 Insulin aspart) levetiracetam 750 mg tablet 750 mg PO BID 06/21/22 02/23/23 losartan 100 mg tablet 100 mg PO DAILY 06/21/22 02/23/23 Vitamin D3 50 mcg PO DAILY 02/23/23 02/23/23 potassium chloride 20 mEq/15 mL 20 meq PO BID 02/23/23 02/23/23 oral liquid Allergies Allergy/AdvReac Type Severity Reaction Status Date / Time No Known Allergies Allergy Verified 11/22/22 09:53 Review of Systems Review of Systems: Unable to obtain review of systems due to altered mental status [facility] Past Medical History Medical History COPD (chronic obstructive pulmonary disease) CVA (cerebral vascular accident) Heart failure History of type 2 diabetes mellitus Hyperlipidemia Hypertension Seizures Surgical History Surgical History Surgical history unknown Social History Social History Smoking status: Former smoker Tobacco type: cigarettes Alcohol intake: unknown Substance use: unknown Spiritual care concerns: No Course Course Emergency Course: 22:16 - Chemistries demonstrate elevated creatinine of 1.6 (baseline 1.3). CK elevated to 2515. I am concerned the patient has developed rhabdomyolysis. UA consistent with UTI. I discussed the patient with hospitalist, Dr. Uribe who accepts admission. Vital Signs Vital signs: Vital Signs Pulse Rate 103 H 02/23/23 17:54 Respiratory Rate 20 02/23/23 17:54 Blood Pressure 140/59 L 02/23/23 17:54 Pulse Oximetry 94 02/23/23 17:54 Oxygen Delivery Room Air 02/23/23 17:54 Temperature 97.2 F L 02/24/23 20:50 Pulse Rate 80 02/24/23 20:50 Respiratory Rate 16 02/24/23 20:50 Blood Pressure 161/65 H 02/24/23 20:50 Pulse Oximetry 100 02/24/23 20:50 Oxygen Delivery Room Air 02/24/23 20:50 MDM - Altered Mental Status MDM Narrative Medical decision making narrative: Plan: Labs, imaging, EKG, troponin, reassess Differential Diagnosis Differential diagnosis: Likely alcoholic intoxication, hypoglycemia, hyponatremia and other (Intracranial hemorrhage, skull fracture, UTI, pneumonia, metabolic abnormality, rhabdomyolysis, other) Lab Data 02/25/23 05:42 02/24/23 05:44 Labs: Lab Results 02/23/23 02/23/23 02/23/23 Range/Units 18:06 18:38 20:17 WBC 14.0 H (4.5-10.0) K/mm3 RBC 4.25 L (4.6-6.20) M/mm3 Hgb 11.9 L (14.0-18.0) g/dL Hct 36.3 L (42.0-52.0) % MCV 85.4 (
[2023-02-23 21:51] LABS: Appearance Urine Turbid (Clear); Bacteria Urine 4+ /hpf; Bilirubin Urine Negative (Negative); Blood Urine 3+ (Negative); Color Urine Yellow (Yellow); Glucose Urine UA Negative (Negative); Ketones Urine Negative (Negative); Leukocyte Esterase Ur 3+ LEU/UL (Negative); Need Manual Microscopic Reviewed; Nitrate Urine Positive (Negative); Protein Urine 2+ mg/dL (Negative); RBC Urine 21-50 /hpf (0-2); Specific Grav Ur 1.014 (1.001-1.035); Squamous Epithelial Cell Urine Occasional /hpf (Few); WBC Urine >100 /hpf; pH Urine 5.5 (5.0-9.0)
[2023-02-23] MEDS: CEFEPIME 1 GM/NS 50 ML 1 GM/50 ML BAG IVPB (21:52)
[2023-02-23 21:54] LABS: Add Urine Microscopic? YES
--- NOTE | 2023-02-23 22:21 | PM.IMHP ---
H&P: HPI History of Present Illness Date/Time: 02/23/23 22:21 Chief Complaint: Patient transferred from long term via EMS for altered mental status Narrative: 68 years old unfortunate white male with history of stroke and multiple chronic medical issues was brought to the ER for evaluation by long term with complaint of altered mental status. Workup was done which showed finding consistent with a BANDAR, UTI and rhabdomyolysis. Patient was started on IV hydration and IV antibiotics. Could not get a good history because of altered mental status and patient is not answering questions. Spoke with the ER physician in detail. We'll admit him to the floor for IV hydration, IV antibiotics and close monitoring. Review of Systems Review of Systems: Unable to be obtained. Patient is pleasantly confused. ROS unobtainable: Yes unobtainable due to medical condition and unobtainable due to mental status [facility] Past Medical History Medical History COPD (chronic obstructive pulmonary disease) CVA (cerebral vascular accident) Heart failure History of type 2 diabetes mellitus Hyperlipidemia Hypertension Seizures Surgical History Surgical History Surgical history unknown Social History Social History Smoking status: Current every day smoker Tobacco type: cigarettes Alcohol intake: unknown Substance use: unknown Spiritual care concerns: No Meds Home Medications and Allergies Home Medications Medication Instructions Recorded Confirmed Type acetaminophen 160 mg/5 mL oral 640 mg PO QID PRN Pain 06/21/22 06/21/22 History suspension atorvastatin 40 mg tablet 40 mg PO DAILY 06/21/22 06/21/22 History carvedilol 12.5 mg tablet 12.5 mg PO DAILY 06/21/22 06/21/22 History citalopram 10 mg tablet 10 mg PO DAILY 06/21/22 06/21/22 History clonidine HCl 0.1 mg tablet 0.1 mg PO DAILY 06/21/22 06/21/22 History clopidogrel 75 mg tablet 75 mg PO DAILY 06/21/22 06/21/22 History clotrimazole 1 % topical cream 1 applic topical BID PRN ringworm 06/21/22 06/21/22 History glucagon 1 mg solution for 1 mg IM TID PRN Hypoglycemia 06/21/22 06/21/22 History injection (Glucagon Emergency Kit) hydrochlorothiazide 12.5 mg tablet 12.5 mg PO DAILY 06/21/22 06/21/22 History insulin aspart U-100 100 unit/mL 10 unit subcut TIDWM 06/21/22 06/21/22 History subcutaneous solution (Novolog U-100 Insulin aspart) levetiracetam 750 mg tablet 750 mg PO BID 06/21/22 06/21/22 History losartan 100 mg tablet 100 mg PO DAILY 06/21/22 06/21/22 History insulin detemir U-100 100 unit/mL 30 unit (0.3 mL) subcut HS #3 mL 06/23/22 06/21/22 Rx (3 mL) subcutaneous pen (Levemir FlexTouch U-100 Insulin) levofloxacin 750 mg tablet 750 mg PO DAILY #5 tabs 06/23/22 Rx potassium chloride 20 mEq/15 mL 20 meq (15 mL) PO BIDWM #450 mL 06/23/22 06/21/22 Rx oral liquid Allergies Allergy/AdvReac Type Severity Reaction Status Date / Time No Known Allergies Allergy Verified 11/22/22 09:53 Vital Signs Vital Signs - 24 hr 02/23/23 17:54 02/23/23 18:00 02/23/23 18:01 Temperature Pulse Rate 103 H 103 H Respiratory Rate 20 29 H Blood Pressure 140/59 L 111/41 L Pulse Oximetry 94 95 95 Oxygen Delivery Room Air Room Air 02/23/23 18:47 02/23/23 18:45 02/23/23 19:02 Temperature Pulse Rate 96 97 95 Respiratory Rate 30 H 24 H 27 H Blood Pressure 165/74 H 165/74 H Pulse Oximetry 96 97 96 Oxygen Delivery 02/23/23 19:31 02/23/23 19:46 02/23/23 20:03 Temperature Pulse Rate 99 92 93 Respiratory Rate 17 26 H 21 H Blood Pressure Pulse Oximetry 96 Oxygen Delivery 02/23/23 20:23 Temperature 37.1 C Pulse Rate 93 Respiratory Rate 24 H Blood Pressure Pulse Oximetry Oxygen Delivery Exam Narrative: PHYSICAL EXAMINATION: Vital signs: Please see the c
[2023-02-24] VITALS (7 sets, daily range): BP systolic 161–187; BP diastolic 65–82; PULSE 77–93; RESP 16–18; TEMP 36.2–36.8; O2SAT 98–100
[2023-02-24] MEDS: SODIUM CHLORIDE 0.9% IV 1,000 ML 150 ML IV CONT (00:08)
--- NOTE | 2023-02-24 00:32 | ADMGEN ---
This patient, Alexy Ochoa, was admitted to [facility] Surg Room 302-01. Patient/family oriented to hospital policies and general routines including ID bracelet, bed and alarms, visiting hours, pain management, procedures, bathroom and other care routines, personal items, smoking policy, room service/diet, and visiting hours. Information on how to activate the Rapid Response Team has been discussed. Patient/Family are encouraged to report perceived risks to care and to ask questions if they do not understand what they are told or what they should do.
--- NOTE | 2023-02-24 00:36 | PC.NURSE ---
At 2325, pt arrived to unit. BP was elevated at 184/87; pt was agitated and uncooperative. Dr. Uribe, overnight hospitalist, was notified of BP. stated he would put in the patient's home medications and look into PRN medications.
[2023-02-24] MEDS: KCL 20 MEQ/SW 100 ML 100 ML 50 MEQ IVPB (03:39)
--- NOTE | 2023-02-24 04:35 | PC.NURSE ---
At 0435, pt BP was 187/70. Dr. Uribe was notified. Order to give 0900 hydrochlorothiazide and carvedilol dose at this time.
[2023-02-24] MEDS: carvediloL 12.5 MG TABLET PO ×2 (04:38→20:49)
[2023-02-24] MEDS: hydroCHLOROthiazide 12.5 MG CAPSULE PO (04:39)
[2023-02-24 06:33] LABS: Basophils Percent Auto 0.3 % (0.2-1.2); Eosinophils Percent Auto 0.3 % (0-4.4); Hematocrit 35.4 % (42.0-52.0); Hemoglobin 11.2 g/dL (14.0-18.0); Immature Granulocyte Absolute 0.05 K/mm3 (0.00-0.031); Immature Granulocyte Percent A 0.4 % (0-0.5); Lymphocytes Percent Auto 7.5 % (18.3-44.2); Mean Corpuscular HGB Conc 31.6 g/dl (32-36); Mean Corpuscular Hemoglobin 27.7 pg (26-34); Mean Corpuscular Volume 87.4 fl (80-100); Mean Platelet Volume 11.2 fl (7.4-10.4); Monocytes Percent Auto 8.5 % (2.6-8.5); Platelet Count Result 158 k/mm3 (150-375); Red Blood Count 4.05 M/mm3 (4.6-6.20); Red Cell Distribution Width 14.5 % (11.5-14.5); White Blood Count 12.1 K/mm3 (4.5-10.0)
[2023-02-24 06:42] LABS: Anion Gap 5 mmol/L (8-16); Blood Urea Nitrogen 24 mg/dL (9-20); Calcium 7.8 mg/dL (8.4-10.2); Carbon Dioxide 25 mmol/L (22-30); Chloride 107 mmol/L (98-107); Estimated CRCL calculation 60 ml/min; Estimated Glomerular Filt Rate 55; Glucose 175 mg/dL (65-110); Magnesium 1.7 mg/dL (1.6-2.3); Phosphorus 3.2 mg/dL (2.5-4.5); Potassium 3.6 mmol/L (3.4-5.0); Sodium 137 mmol/L (137-145)
[2023-02-24 06:52] LABS: Creatine Kinase 2759 U/L (55-170)
[2023-02-24 07:48] LABS: Glucose Point of Care 166 mg/dl (65-105)
[2023-02-24] MEDS: CHOLECALCIFEROL 1,000 UNITS TABLET 2000 UNITS PO (08:20)
[2023-02-24] MEDS: CITALOPRAM HYDROBROMIDE 10 MG TABLET PO (08:20)
[2023-02-24] MEDS: levETIRAcetam 250 MG TABLET 750 MG PO ×2 (08:20→20:49)
[2023-02-24] MEDS: LOSARTAN POTASSIUM 100 MG TABLET PO (08:21)
[2023-02-24] MEDS: POTASSIUM CHLORIDE 20 MEQ PACKET (FOR LIQUID) PO ×2 (08:21→16:53)
[2023-02-24] MEDS: ATORVASTATIN 40 MG TABLET PO (08:21)
[2023-02-24] MEDS: CLOPIDOGREL BISULFATE 75 MG TABLET PO (08:21)
[2023-02-24] MEDS: cloNIDine HCL 0.1 MG TABLET PO (08:21)
[2023-02-24] MEDS: ENOXAPARIN 40 MG/0.4 ML SYRINGE SUB-Q (08:25)
[2023-02-24 11:48] LABS: Glucose Point of Care 166 mg/dl (65-105)
--- NOTE | 2023-02-24 12:54 | PCOTNOTE ---
Attempted OT evaluation. Combative and uncooperative at this time. Discussed this with Dr. Badillo who recommends therapy attempts again tomorrow in hopes of improved cooperation. Will continue to attempt.
--- NOTE | 2023-02-24 16:35 | PM.IMPN ---
Progress Note: A&P Assessment and Plan (1) Acute UTI: Code(s): N39.0 - Urinary tract infection, site not specified Status: Acute (2) Acute encephalopathy: Code(s): G93.40 - Encephalopathy, unspecified Status: Acute (3) Type 2 diabetes mellitus: Code(s): E11.9 - Type 2 diabetes mellitus without complications Status: Chronic (4) Dysphagia: Code(s): R13.10 - Dysphagia, unspecified Status: Acute (5) Rhabdomyolysis: Code(s): M62.82 - Rhabdomyolysis Status: Acute (6) BANDAR (acute kidney injury): Code(s): N17.9 - Acute kidney failure, unspecified Status: Acute Plan Acute metabolic encephalopathy Likely secondary to dehydration, electrolyte disorder and UTI Able to move all extremities Neuro check dehydration, BANDAR and rhabdomyolysis Patient given 1 L IV hydration in the ER followed by normal saline 150 cc/hour IV potassium supplementation order as patient has borderline potassium level Strict Is & Os Patient had CK level of to 2515 which will be monitored closely BUN creatinine is trending down UTI UA shows pyuria hematuria, cloudy Patient given 1 dose of IV cefepime in the ER Will start patient on IV Rocephin on the floor Follow-up on urine cultures and adjust antibiotics as needed Diabetes Patient started on Accu-Cheks with Insulin coverage as per protocol PT/OT evaluation ordered A coordination consult for DC planning back to [facility] when he is clinically stable for discharge Subjective Date/time seen: 02/24/23 16:35 Interval history: I saw on exam patient. Patient is somnolent, arousable, has no obvious distress. Patient has no complaints, basically unable to answer questions I reviewed labs, leukocytosis improving, BUN creatinine is trending down. Patient is afebrile, blood pressure stable. Exam Narrative: PHYSICAL EXAMINATION: Vital signs: Please see the chart General physical exam: patient is pleasantly confused, appears weak and tired Head/eyes: Atraumatic, EOMI, PERRLA ENT: +dry mucous membranes, nasal passages clear Neck: Supple, full range of motion, trachea midline CVS: S1 + S2, regular rate and rhythm, no murmurs Respiratory: Bilaterally fair air entry in both lung cespedes, mild B/L crackles, symmetric chest expansion, no distress Abdomen: Soft, non-tender, bowel sounds +ve, no organomegaly Extremities: No clubbing, no cyanosis, no edema, no calf tenderness Musculoskeletal: Moves all, decreased range of motion, no muscle spasms Skin: Warm, dry, no jaundice, no cyanosis Neurological: Not oriented x3 patient is pleasantly confused. Psychiatric: Unable to be obtained. Patient is pleasantly confused. Objective Data Vital Signs Vital Signs: Vital Signs - 24 hr 02/23/23 17:54 02/23/23 18:00 02/23/23 18:01 Temperature Pulse Rate 103 H 103 H Respiratory Rate 20 29 H Blood Pressure 140/59 L 111/41 L Pulse Oximetry 94 95 95 Oxygen Delivery Room Air Room Air 02/23/23 18:47 02/23/23 18:45 02/23/23 19:02 Temperature Pulse Rate 96 97 95 Respiratory Rate 30 H 24 H 27 H Blood Pressure 165/74 H 165/74 H Pulse Oximetry 96 97 96 Oxygen Delivery 02/23/23 19:31 02/23/23 19:46 02/23/23 20:03 Temperature Pulse Rate 99 92 93 Respiratory Rate 17 26 H 21 H Blood Pressure Pulse Oximetry 96 Oxygen Delivery 02/23/23 20:23 02/23/23 23:04 02/23/23 20:52 Temperature 98.7 F Pulse Rate 93 94 Respiratory Rate 24 H 24 H Blood Pressure 184/80 H Pulse Oximetry 92 Oxygen Delivery 02/23/23 21:37 02/23/23 21:46 02/23/23 22:04 Temperature Pulse Rate 93 91 89 Respiratory Rate 24 H 22 H 21 H Blood Pressure Pulse Oximetry Oxygen Delivery 02/23/23 22:15 02/23/23 22:32 02/23/23 23:03 Temperature Pulse Rate 88 86 85 Respiratory Rate 20 18 20 Blood Pressure Pulse Oximetry 97 Oxygen Delivery 02/23/23 23:18 02/23/23 23:20 0
[2023-02-24 16:47] LABS: Glucose Point of Care 182 mg/dl (65-105)
[2023-02-24] MEDS: SODIUM CHLORIDE 0.9% IV 1,000 ML 100 ML IV CONT (16:53)
[2023-02-24] MEDS: INSULIN GLARGINE (*BKC) 100 UNITS/ML 30 UNITS SUB-Q (20:53)
[2023-02-24 21:16] LABS: Glucose Point of Care 187 mg/dl (65-105)
[2023-02-25 06:06] LABS: Basophils Percent Auto 0.4 % (0.2-1.2); Eosinophils Percent Auto 0.5 % (0-4.4); Hematocrit 35.3 % (42.0-52.0); Hemoglobin 11.2 g/dL (14.0-18.0); Immature Granulocyte Absolute 0.03 K/mm3 (0.00-0.031); Immature Granulocyte Percent A 0.4 % (0-0.5); Lymphocytes Absolute Auto 0.87 K/mm3 (0.9-3.2); Lymphocytes Percent Auto 11.7 % (18.3-44.2); Mean Corpuscular HGB Conc 31.7 g/dl (32-36); Mean Corpuscular Hemoglobin 27.7 pg (26-34); Mean Corpuscular Volume 87.2 fl (80-100); Mean Platelet Volume 10.7 fl (7.4-10.4); Monocytes Absolute Auto 0.7 K/mm3 (0.1-0.6); Monocytes Percent Auto 8.7 % (2.6-8.5); Neutrophils Absolute Auto 5.8 K/mm3 (1.3-6.7); Neutrophils Percent Auto 78.3 % (45.5-73.1); Platelet Count Result 143 k/mm3 (150-375); Red Blood Count 4.05 M/mm3 (4.6-6.20); Red Cell Distribution Width 14.3 % (11.5-14.5); White Blood Count 7.4 K/mm3 (4.5-10.0)
[2023-02-25 06:15] VITALS: BP 192/74; PULSE 70; RESP 18; TEMP 36.5; O2SAT 100
[2023-02-25 06:36] LABS: Anion Gap 5 mmol/L (8-16); Blood Urea Nitrogen 20 mg/dL (9-20); Carbon Dioxide 30 mmol/L (22-30); Chloride 105 mmol/L (98-107); Creatine Kinase 1058 U/L (55-170); Estimated CRCL calculation 77 ml/min; Estimated Glomerular Filt Rate > 60; Glucose 161 mg/dL (65-110); Potassium 3.8 mmol/L (3.4-5.0); Sodium 140 mmol/L (137-145)
[2023-02-25] MEDS: hydrALAZINE HCL 20 MG/ML VIAL 10 MG IV PUSH (06:39)
[2023-02-25 07:44] LABS: Glucose Point of Care 140 mg/dl (65-105)
[2023-02-25] MEDS: ATORVASTATIN 40 MG TABLET PO (08:36)
[2023-02-25] MEDS: POTASSIUM CHLORIDE 20 MEQ PACKET (FOR LIQUID) PO ×2 (08:36→16:56)
[2023-02-25] MEDS: CHOLECALCIFEROL 1,000 UNITS TABLET 2000 UNITS PO (08:36)
[2023-02-25] MEDS: CITALOPRAM HYDROBROMIDE 10 MG TABLET PO (08:36)
[2023-02-25] MEDS: cloNIDine HCL 0.1 MG TABLET PO (08:36)
[2023-02-25 08:37] VITALS: PULSE 75
[2023-02-25] MEDS: levETIRAcetam 250 MG TABLET 750 MG PO ×2 (08:37→20:47)
[2023-02-25] MEDS: LOSARTAN POTASSIUM 100 MG TABLET PO (08:37)
[2023-02-25] MEDS: CLOPIDOGREL BISULFATE 75 MG TABLET PO (08:37)
[2023-02-25] MEDS: carvediloL 12.5 MG TABLET PO ×2 (08:37→20:47)
[2023-02-25] MEDS: ENOXAPARIN 40 MG/0.4 ML SYRINGE SUB-Q (08:43)
--- NOTE | 2023-02-25 09:27 | PM.IMPN ---
Progress Note: A&P Assessment and Plan (1) Acute UTI: Code(s): N39.0 - Urinary tract infection, site not specified Status: Acute (2) Acute encephalopathy: Code(s): G93.40 - Encephalopathy, unspecified Status: Acute (3) Type 2 diabetes mellitus: Code(s): E11.9 - Type 2 diabetes mellitus without complications Status: Chronic (4) Dysphagia: Code(s): R13.10 - Dysphagia, unspecified Status: Acute (5) Rhabdomyolysis: Code(s): M62.82 - Rhabdomyolysis Status: Acute (6) BANDAR (acute kidney injury): Code(s): N17.9 - Acute kidney failure, unspecified Status: Acute Plan Acute metabolic encephalopathy Likely secondary to dehydration, electrolyte disorder and UTI Able to move all extremities Neuro check Patient is awake, dehydration, BANDAR and rhabdomyolysis Patient given 1 L IV hydration in the ER followed by normal saline 150 cc/hour IV potassium supplementation order as patient has borderline potassium level Strict Is & Os Patient had CK level of to 2515 which will be monitored closely BUN creatinine is trending down UTI UA shows pyuria hematuria, cloudy Patient given 1 dose of IV cefepime in the ER Will start patient on IV Rocephin on the floor Follow-up on urine cultures: E coli and adjust antibiotics as needed Diabetes Patient started on Accu-Cheks with Insulin coverage as per protocol PT/OT evaluation ordered A coordination consult for DC planning back to jail when he is clinically stable for discharge Subjective Date/time seen: 02/25/23 09:27 Interval history: I saw on exam patient. Patient mental status is improving, alert, answer some questions, still confused, not oriented x3. , leukocytosis improving, BUN creatinine is trending down. Patient is afebrile, blood pressure stable. Exam Narrative: PHYSICAL EXAMINATION: Vital signs: Please see the chart General physical exam: patient is pleasantly confused, appears weak and tired Head/eyes: Atraumatic, EOMI, PERRLA ENT: +dry mucous membranes, nasal passages clear Neck: Supple, full range of motion, trachea midline CVS: S1 + S2, regular rate and rhythm, no murmurs Respiratory: Bilaterally fair air entry in both lung cespedes, mild B/L crackles, symmetric chest expansion, no distress Abdomen: Soft, non-tender, bowel sounds +ve, no organomegaly Extremities: No clubbing, no cyanosis, no edema, no calf tenderness Musculoskeletal: Moves all, decreased range of motion, no muscle spasms Skin: Warm, dry, no jaundice, no cyanosis Neurological: Not oriented x3 patient is pleasantly confused. Psychiatric: Unable to be obtained. Patient is pleasantly confused. Objective Data Vital Signs Vital Signs: Vital Signs - 24 hr 02/24/23 14:00 02/24/23 20:49 02/24/23 20:50 Temperature 98.3 F 97.2 F L Pulse Rate 77 80 80 Respiratory Rate 16 16 Blood Pressure 163/82 H 161/65 H Pulse Oximetry 98 100 Oxygen Delivery 02/24/23 20:50 02/25/23 06:15 02/25/23 08:37 Temperature 97.7 F Pulse Rate 70 75 Respiratory Rate 18 Blood Pressure 192/74 H Pulse Oximetry 100 Oxygen Delivery Room Air Intake/Output Intake/Output: Intake & Output 02/22/23 02/23/23 02/24/23 02/25/23 23:59 23:59 23:59 23:59 Intake Total 1050 50 Output Total 50 Balance 1000 50 Meds/Results Medications: Active Medications Generic Name Dose Route Start Last Admin Trade Name Freq PRN Reason Stop Dose Admin Acetaminophen 650 mg 02/23/23 22:38 Acetaminophen 325 Mg Tablet PO Q4H PRN Mild Pain (1-3) or Fever Acetaminophen 640 mg 02/24/23 00:41 Acetaminophen Elixir 325 Mg/10.15 Ml Udc PO QID PRN Pain 1-3 Al Hydrox/Mg Hydrox/Simethicone 30 ml 02/23/23 22:38 Mag Hydrox/Al Hydrox/Simeth 30 Ml Udc PO QID PRN Dyspepsia Atorvastatin Calcium 40 mg 02/24/23 09:00 02/25/23 08:36 Atorvastatin 40 Mg Tablet PO 4
--- NOTE | 2023-02-25 09:32 | PCPTNOTE ---
Attempted to see patient for evaluation, but he states no he does not want to attempt physical therapist and when asked if therapy can come back later he states no.
[2023-02-25] MEDS: SODIUM CHLORIDE 0.9% IV 1,000 ML 100 ML IV CONT ×2 (10:21→20:48)
--- NOTE | 2023-02-25 11:03 | PCOTNOTE ---
Attempted OT evaluation this AM. Patient replying no to all questions. Refusing any/all activity.
[2023-02-25 11:49] LABS: Glucose Point of Care 140 mg/dl (65-105)
--- NOTE | 2023-02-25 13:39 | PCPTNOTE ---
2nd attempt at PT evaluation this afternoon. Patient did sit EOB and take a drink of water. Patient declined to attempt a sit to stand or chair transfer to simulate WC transfer which he states he does at [place]. Physical therapy will attempt to see patient tomorrow.
[2023-02-25 14:00] VITALS: BP 175/63; PULSE 67; RESP 16; TEMP 36.4; O2SAT 99
[2023-02-25 16:38] LABS: Glucose Point of Care 139 mg/dl (65-105)
[2023-02-25 20:44] VITALS: BP 172/69; PULSE 69; RESP 16; TEMP 36.5; O2SAT 100
[2023-02-25 20:47] VITALS: PULSE 74
[2023-02-25] MEDS: INSULIN GLARGINE (*BKC) 100 UNITS/ML 30 UNITS SUB-Q (20:47)
[2023-02-25 20:49] LABS: Glucose Point of Care 158 mg/dl (65-105)
[2023-02-26 06:27] VITALS: BP 184/75; PULSE 70; RESP 16; TEMP 36.4; O2SAT 96
[2023-02-26 08:10] LABS: Anion Gap 6 mmol/L (8-16); Blood Urea Nitrogen 14 mg/dL (9-20); Calcium 7.3 mg/dL (8.4-10.2); Carbon Dioxide 25 mmol/L (22-30); Chloride 105 mmol/L (98-107); Creatine Kinase 390 U/L (55-170); Estimated CRCL calculation 94 ml/min; Estimated Glomerular Filt Rate > 60; Glucose 127 mg/dL (65-110); Sodium 136 mmol/L (137-145)
[2023-02-26 08:14] LABS: Basophils Percent Auto 0.2 % (0.2-1.2); Eosinophils Absolute Auto 0.1 K/mm3 (0-0.3); Eosinophils Percent Auto 1.5 % (0-4.4); Hematocrit 33.6 % (42.0-52.0); Hemoglobin 10.8 g/dL (14.0-18.0); Immature Granulocyte Absolute 0.03 K/mm3 (0.00-0.031); Immature Granulocyte Percent A 0.5 % (0-0.5); Lymphocytes Absolute Auto 1.29 K/mm3 (0.9-3.2); Lymphocytes Percent Auto 21.8 % (18.3-44.2); Mean Corpuscular HGB Conc 32.1 g/dl (32-36); Mean Corpuscular Hemoglobin 27.8 pg (26-34); Mean Corpuscular Volume 86.4 fl (80-100); Mean Platelet Volume 10.8 fl (7.4-10.4); Monocytes Absolute Auto 0.7 K/mm3 (0.1-0.6); Monocytes Percent Auto 11.8 % (2.6-8.5); Neutrophils Absolute Auto 3.8 K/mm3 (1.3-6.7); Neutrophils Percent Auto 64.2 % (45.5-73.1); Platelet Count Result 166 k/mm3 (150-375); Red Blood Count 3.89 M/mm3 (4.6-6.20); Red Cell Distribution Width 13.9 % (11.5-14.5); White Blood Count 5.9 K/mm3 (4.5-10.0)
--- NOTE | 2023-02-26 08:27 | PM.IMPN ---
Progress Note: A&P Assessment and Plan (1) Acute UTI: Code(s): N39.0 - Urinary tract infection, site not specified Status: Acute (2) Acute encephalopathy: Code(s): G93.40 - Encephalopathy, unspecified Status: Acute (3) Type 2 diabetes mellitus: Code(s): E11.9 - Type 2 diabetes mellitus without complications Status: Chronic (4) Dysphagia: Code(s): R13.10 - Dysphagia, unspecified Status: Acute (5) Rhabdomyolysis: Code(s): M62.82 - Rhabdomyolysis Status: Acute (6) BANDAR (acute kidney injury): Code(s): N17.9 - Acute kidney failure, unspecified Status: Acute Plan Acute metabolic encephalopathy Likely secondary to dehydration, electrolyte disorder and UTI Able to move all extremities Neuro check Patient is awake, dehydration, BANDAR and rhabdomyolysis Patient given 1 L IV hydration in the ER followed by normal saline 150 cc/hour IV potassium supplementation order as patient has borderline potassium level Strict Is & Os Patient had CK level of to 2515 which will be monitored closely BUN creatinine is trending down, stop normal saline 100 mL/hour Hypokalemia potassium 3.0, potassium chloride 40 mEq p.o. once and 20 mEq p. IV push 1 Follow-up BMP UTI UA shows pyuria hematuria, cloudy Patient given 1 dose of IV cefepime in the ER Will start patient on IV Rocephin on the floor Follow-up on urine cultures: E coli and adjust antibiotics as needed Diabetes Patient started on Accu-Cheks with Insulin coverage as per protocol PT/OT evaluation ordered A coordination consult for DC planning back to [facility] when he is clinically stable for discharge may discharge patient tomorrow if patient condition continues to improve Subjective Date/time seen: 02/26/23 08:27 Interval history: I saw on exam patient. Patient is still confused, but mental status continue to improve, patient is not not oriented x3 Exam Narrative: General physical exam: patient is pleasantly confused, appears weak and tired Head/eyes: Atraumatic, EOMI, PERRLA ENT: +dry mucous membranes, nasal passages clear Neck: Supple, full range of motion, trachea midline CVS: S1 + S2, regular rate and rhythm, no murmurs Respiratory: Bilaterally fair air entry in both lung cespedes, mild B/L crackles, symmetric chest expansion, no distress Abdomen: Soft, non-tender, bowel sounds +ve, no organomegaly Extremities: No clubbing, no cyanosis, no edema, no calf tenderness Musculoskeletal: Moves all, decreased range of motion, no muscle spasms Skin: Warm, dry, no jaundice, no cyanosis Neurological: Not oriented x3 patient is pleasantly confused. Psychiatric: Unable to be obtained. Patient is pleasantly confused. Objective Data Vital Signs Vital Signs: Vital Signs - 24 hr 02/25/23 08:37 02/25/23 08:30 02/25/23 14:00 Temperature 97.6 F Pulse Rate 75 67 Respiratory Rate 16 Blood Pressure 175/63 H Pulse Oximetry 99 Oxygen Delivery Room Air 02/25/23 20:47 02/25/23 20:44 02/26/23 06:27 Temperature 97.7 F 97.6 F Pulse Rate 74 69 70 Respiratory Rate 16 16 Blood Pressure 172/69 H 184/75 H Pulse Oximetry 100 96 Oxygen Delivery Intake/Output Intake/Output: Intake & Output 02/23/23 02/24/23 02/25/23 02/26/23 23:59 23:59 23:59 23:59 Intake Total 1050 50 2290 Output Total 50 Balance 1000 50 2290 Meds/Results Medications: Active Medications Generic Name Dose Route Start Last Admin Trade Name Freq PRN Reason Stop Dose Admin Acetaminophen 650 mg 02/23/23 22:38 Acetaminophen 325 Mg Tablet PO Q4H PRN Mild Pain (1-3) or Fever Acetaminophen 640 mg 02/24/23 00:41 Acetaminophen Elixir 325 Mg/10.15 Ml Udc PO QID PRN Pain 1-3 Al Hydrox/Mg Hydrox/Simethicone 30 ml 02/23/23 22:38 Mag Hydrox/Al Hydrox/Simeth 30 Ml Udc PO QID PRN Dyspepsia Atorvastatin Calcium 40 mg 02/24/23 09:00 02/25
--- NOTE | 2023-02-26 08:34 | PCPTNOTE ---
Attempted PT evaluation, pt refused and only stated no to all of the therapist questions. RN aware. Will follow.
--- NOTE | 2023-02-26 08:40 | PC.NURSE ---
Patient refusing medications and breakfast.
[2023-02-26 09:30] LABS: Glucose Point of Care 127 mg/dl (65-105)
[2023-02-26] MEDS: KCL 20 MEQ/SW 100 ML 100 ML 50 MEQ IVPB (09:40)
--- NOTE | 2023-02-26 10:36 | PCOTNOTE ---
Pt. attempted to see pt. for occupational therapy evaluation. Pt. refuses to participate at this time. Nursing aware. Following.
[2023-02-26] MEDS: LOSARTAN POTASSIUM 100 MG TABLET PO (11:05)
[2023-02-26] MEDS: CLOPIDOGREL BISULFATE 75 MG TABLET PO (11:05)
[2023-02-26] MEDS: levETIRAcetam 250 MG TABLET 750 MG PO (11:05)
[2023-02-26] MEDS: cloNIDine HCL 0.1 MG TABLET PO (11:06)
[2023-02-26] MEDS: ENOXAPARIN 40 MG/0.4 ML SYRINGE SUB-Q (11:06)
[2023-02-26] MEDS: ATORVASTATIN 40 MG TABLET PO (11:06)
[2023-02-26 11:07] VITALS: PULSE 72
[2023-02-26] MEDS: carvediloL 12.5 MG TABLET PO (11:07)
[2023-02-26] MEDS: CHOLECALCIFEROL 1,000 UNITS TABLET 2000 UNITS PO (11:07)
[2023-02-26] MEDS: CITALOPRAM HYDROBROMIDE 10 MG TABLET PO (11:08)
[2023-02-26] MEDS: POTASSIUM CHLORIDE 20 MEQ PACKET (FOR LIQUID) PO ×2 (12:17→16:57)
[2023-02-26] MEDS: POTASSIUM CHLORIDE 20 MEQ PACKET (FOR LIQUID) 40 MEQ PO (12:17)
[2023-02-26 12:25] LABS: Glucose Point of Care 159 mg/dl (65-105)
[2023-02-26 12:30] VITALS: BMI 30.1
[2023-02-26 14:00] VITALS: BP 140/60; PULSE 66; RESP 20; TEMP 36.6; O2SAT 100
[2023-02-26 15:32] LABS: Anion Gap 5 mmol/L (8-16); Blood Urea Nitrogen 13 mg/dL (9-20); Calcium 7.5 mg/dL (8.4-10.2); Carbon Dioxide 26 mmol/L (22-30); Chloride 105 mmol/L (98-107); Estimated CRCL calculation 85 ml/min; Estimated Glomerular Filt Rate > 60; Glucose 168 mg/dL (65-110); Sodium 136 mmol/L (137-145)
--- NOTE | 2023-02-26 15:58 | PM.DS ---
DS: Admitting Diagnosis Discharge Date 02/26/23 Admitting Diagnosis (1) Acute UTI: ?Code(s): N39.0 - Urinary tract infection, site not specified ?Status:?Acute (2) Acute encephalopathy: ?Code(s): G93.40 - Encephalopathy, unspecified ?Status:?Acute (3) Type 2 diabetes mellitus: ?Code(s): E11.9 - Type 2 diabetes mellitus without complications ?Status:?Chronic (4) Dysphagia: ?Code(s): R13.10 - Dysphagia, unspecified ?Status:?Acute (5) Rhabdomyolysis: ?Code(s): M62.82 - Rhabdomyolysis ?Status:?Acute (6) BANDAR (acute kidney injury): ?Code(s): N17.9 - Acute kidney failure, unspecified ?Status:?Acute DS: Discharge Diagnosis Discharge Diagnosis (1) Acute UTI: Code(s): N39.0 - Urinary tract infection, site not specified Status: Acute (2) Acute encephalopathy: Code(s): G93.40 - Encephalopathy, unspecified Status: Acute (3) Type 2 diabetes mellitus: Code(s): E11.9 - Type 2 diabetes mellitus without complications Status: Chronic (4) Dysphagia: Code(s): R13.10 - Dysphagia, unspecified Status: Acute (5) Rhabdomyolysis: Code(s): M62.82 - Rhabdomyolysis Status: Acute (6) BANDAR (acute kidney injury): Code(s): N17.9 - Acute kidney failure, unspecified Status: Acute DS: Summary Hospital Course Hospital Course: 67 years old gentleman with history of diabetes on insulin, history of CVA, brought to ED because of altered mental status.? Patient was found confused, EMS was called.? When EMS arrived, patient was found to have hypoglycemia, patient was confused.? Patient was given glucagon. ? patient was brought to ED for evaluation.? In the ED, patient was found have dehydration, pyuria on urinalysis, hypokalemia.? When I saw and examined patient in the ED, patient was awake, not able to answer questions.? Patient receive antibiotics in the ED. glucose level becomes normal.? We admit patient for further evaluation and management the following medical issues have been addressed during hospitalization Acute metabolic encephalopathy has dementia and mental status worse than the baseline poa. Likely secondary to dehydration, electrolyte disorder and UTI Able to move all extremities Neuro check Patient is awake, able to answer questions, still confused, possible close to baseline dehydration, BANDAR and rhabdomyolysis Patient given 1 L IV hydration in the ER followed by normal saline 150 cc/hour IV potassium supplementation order as patient has borderline potassium level Strict Is & Os Patient had CK level of to 2515 which will be monitored closely BUN creatinine is trending down, stop normal saline 100 mL/hour Hypokalemia potassium 3.0, potassium chloride 40 mEq p.o. once and 20 mEq p. IV push 1 Follow-up BMP Corrected UTI UA shows pyuria hematuria, cloudy Patient given 1 dose of IV cefepime in the ER start patient on IV Rocephin on the floor 02/24 Follow-up on urine cultures: E coli and adjust antibiotics as needed c/w with augmentin after discharge Diabetes Hypokalemia, likely secondary to poor intake. Hypoglycemic protocol was initiated Patient started on Accu-Cheks with Insulin coverage as per protocol resume home meds aftr discharge. Adjust medications per primary care doctor PT/OT evaluation ordered A coordination consult for DC planning back to long-term when he is clinically stable for discharge Time Spent with Patient Time attestation: Total time spent providing and/or coordinating discharge services: Exam Narrative: General physical exam: patient is pleasantly confused, appears weak and tired Head/eyes: Atraumatic, EOMI, PERRLA ENT: moist mucous membranes, nasal passages clear Neck: Supple, full range of motion, trachea midline CVS: S1 + S2, regular rate and rhythm, no murmurs Respiratory: Bilaterally fair air entry in both lung cespedes, mild B/L crackles, sy
== END 2023-02-26 18:00 | DRG 689 ==
LOC: ANHED 22:43 → ANH3MEDSUR 22:57
PROVIDERS: Emergency Medicine; Admitting Provider Family Medicine; Emergency Provider Preventive Medicine Aerospace Medicine; PCP Hospitalist; Visit Provider Hospitalist
DX: N39.0 Urinary tract infection, site not specified (principal); G93.41 Metabolic encephalopathy; M62.82 Rhabdomyolysis; N17.9 Acute kidney failure, unspecified; B96.20 Unspecified Escherichia coli [E. coli] as the cause of diseases classified elsewhere; E86.0 Dehydration; E11.9 Type 2 diabetes mellitus without complications; E78.5 Hyperlipidemia, unspecified; I11.0 Hypertensive heart disease with heart failure; I50.9 Heart failure, unspecified; D72.829 Elevated white blood cell count, unspecified; J44.9 Chronic obstructive pulmonary disease, unspecified; F03.90 Unspecified dementia, unspecified severity, without behavioral disturbance, psychotic disturbance, mood disturbance, and anxiety; E87.6 Hypokalemia; R31.9 Hematuria, unspecified; R13.10 Dysphagia, unspecified; Z79.4 Long term (current) use of insulin; Z86.73 Personal history of transient ischemic attack (TIA), and cerebral infarction without residual deficits; Z87.891 Personal history of nicotine dependence
CPT/HCPCS: 36415; 70450; 71045; 74177; 80048; 80053; 80307; 81001; 82550; 82948; 83605; 83735; 84100; 84484; 85025; 85610; 85730; 87077; 87086; 87186; 93005; 96365; 99285; A9270; J0360; J0692; J0696; J1650; J1815; J3480; J7030; Q9967

== ENCOUNTER 2023-03-26 14:15 | Emergency (ER) | payer MEDICARE, MEDICAID, SELFPAY ==
--- NOTE | ~2023-03-26 | CT_ITS ---
EXAMINATION: CT brain wo con DATE: 03/26/2023 15:14 INDICATION: Patient fell out of wheelchair and struck head. TECHNIQUE: Computed tomography (CT) of the head was performed without intravenous contrast. The mA wa s adjusted according to patient size. Iterative reconstruction technique was employed. Exam dose: 68 1.00 mGy-cm total exam DLP. COMPARISON: 02/23/2023 CT brain FINDINGS: Extensive chronic encephalomalacia involving the left cerebral hemisphere, involving the ma jority of distribution of the left middle and posterior cerebral arteries, unchanged since 02/23/2023. Chronic right basal ganglia lacunar infarct. There is moderately prominent central and cortical cerebral and mild cerebellar atrophy. No intracranial mass lesion or hemorrhage or recent cerebrovascular accident, midline shift or mass e ffect effect or subdural or epidural hematoma is detected. There is nonspecific diminished attenuation cerebral white matter, likely due to chronic small vessel ischemic change. Prominent bilateral carotid siphon internal carotid artery calcifications are noted . Left mastoid effusions. The right mastoid air cells are normally developed and aerated. Included para nasal sinuses are unremarkable. No skull fracture or bone destruction is detected. IMPRESSION: No skull fracture or acute intracranial finding or significant change since 02/23/2023 Reviewed, dictated and finalized at [facility]. Reviewed, dictated and finalized at [facility]. IMPRESSION: No skull fracture or acute intracranial finding or significant chapis nge since 02/23/2023
--- NOTE | ~2023-03-26 | CT_ITS ---
EXAMINATION: CT cervical spine wo con DATE: 03/26/2023 15:14 INDICATION: Patient fell out of wheelchair and struck head. TECHNIQUE: Computed tomography (CT) of the cervical spine was performed without intravenous contrast. Automated exposure control and iterative reconstruction technique were employed. Exam dose: 681.00 mGy-cm total exam DLP. COMPARISON: None FINDINGS: There is straightening of cervical spine which may be due to positioning or muscle spasm. T here is mild cervical levoscoliosis. C1 and C2 are normally aligned and the odontoid process is intact. No fracture or dislocation or lock ed facet or prevertebral soft tissue swelling. There is moderate degenerative disc disease at C4-5 and C5-C6 and mild degenerative disc disease at C 6-7. There is degenerative change at some of the apophyseal joints, to a greater extent on the right side. . IMPRESSION: Straightening of the cervical spine and mild cervical levoscoliosis Mild to moderate cervical spondylosis No fracture or dislocation or locked facet Reviewed, dictated and finalized at [facility]. Reviewed, dictated and finalized at [facility]. IMPRESSION: Straightening of the cervical spine and mild cervical levoscoliosi s Mild to moderate cervical spondylosis No fracture or dislocation or locked facet
[2023-03-26 14:38] VITALS: BP 122/76; PULSE 84; RESP 16; O2SAT 100
--- NOTE | 2023-03-26 14:39 | ED.GENADULT ---
HPI - General Adult General Chief complaint: Head Injury Stated complaint: fall/head injury Time Seen by Provider: 03/26/23 15:33 History of Present Illness HPI narrative: Alexy Ochoa is a 68 y/o male from [place] who arrives via EMS. Per report pt is oriented X 1 at baseline and fell out of his wheelchair striking his head with no LOC. Patient is note to have an abrasion/ hematoma to the back of his head. Patient is on Plavix Related Data Home Medications Medication Instructions Recorded Confirmed acetaminophen 160 mg/5 mL oral 640 mg PO QID PRN Pain 06/21/22 02/23/23 suspension atorvastatin 40 mg tablet 40 mg PO DAILY 06/21/22 02/23/23 carvedilol 12.5 mg tablet 12.5 mg PO BID 06/21/22 02/23/23 citalopram 10 mg tablet 10 mg PO DAILY 06/21/22 02/23/23 clonidine HCl 0.1 mg tablet 0.1 mg PO DAILY 06/21/22 02/23/23 clopidogrel 75 mg tablet 75 mg PO DAILY 06/21/22 02/23/23 clotrimazole 1 % topical cream 1 applic topical BID PRN ringworm 06/21/22 02/23/23 glucagon 1 mg solution for 1 mg IM TID PRN Hypoglycemia 06/21/22 02/23/23 injection (Glucagon Emergency Kit) hydrochlorothiazide 12.5 mg tablet 12.5 mg PO DAILY 06/21/22 02/23/23 insulin aspart U-100 100 unit/mL See Protocol subcut TIDWM 06/21/22 02/23/23 subcutaneous solution (Novolog U-100 Insulin aspart) levetiracetam 750 mg tablet 750 mg PO BID 06/21/22 02/23/23 losartan 100 mg tablet 100 mg PO DAILY 06/21/22 02/23/23 Vitamin D3 50 mcg PO DAILY 02/23/23 02/23/23 potassium chloride 20 mEq/15 mL 20 meq PO BID 02/23/23 02/23/23 oral liquid Allergies Allergy/AdvReac Type Severity Reaction Status Date / Time No Known Allergies Allergy Verified 11/22/22 09:53 [facility] Past Medical History Medical History COPD (chronic obstructive pulmonary disease) CVA (cerebral vascular accident) Heart failure History of type 2 diabetes mellitus Hyperlipidemia Hypertension Seizures Surgical History Surgical History Surgical history unknown Social History Social History Smoking status: Former smoker Tobacco type: cigarettes Alcohol intake: unknown Substance use: unknown Spiritual care concerns: No Course Vital Signs Vital signs: Vital Signs Pulse Rate 84 03/26/23 14:38 Respiratory Rate 16 03/26/23 14:38 Blood Pressure 122/76 03/26/23 14:38 Pulse Oximetry 100 03/26/23 14:38 Pulse Rate 84 03/26/23 14:38 Respiratory Rate 16 03/26/23 14:38 Blood Pressure 122/76 03/26/23 14:38 Pulse Oximetry 100 03/26/23 14:38 Medical Decision Making Vital Signs Vital Signs: Vital Signs Pulse Rate 84 03/26/23 14:38 Respiratory Rate 16 03/26/23 14:38 Blood Pressure 122/76 03/26/23 14:38 Pulse Oximetry 100 03/26/23 14:38 Pulse Rate 84 03/26/23 14:38 Respiratory Rate 16 03/26/23 14:38 Blood Pressure 122/76 03/26/23 14:38 Pulse Oximetry 100 03/26/23 14:38 Lab Data 03/26/23 15:26 03/26/23 15:26 Labs: Lab Results 03/26/23 Range/Units 15:26 WBC 8.1 (4.5-10.0) K/mm3 RBC 4.58 L (4.6-6.20) M/mm3 Hgb 12.6 L (14.0-18.0) g/dL Hct 40.1 L (42.0-52.0) % MCV 87.6 (80-100) fl MCH 27.5 (26-34) pg MCHC 31.4 L (32-36) g/dl RDW 14.7 H (11.5-14.5) % Plt Count 188 (150-375) k/mm3 MPV 10.5 H (7.4-10.4) fl Immature Gran % (Auto) 0.2 (0-0.5) % Neut % (Auto) 71.8 (45.5-73.1) % Lymph % (Auto) 20.3 (18.3-44.2) % Bowie % (Auto) 6.1 (2.6-8.5) % Eos % (Auto) 1.1 (0-4.4) % Baso % (Auto) 0.5 (0.2-1.2) % Lymph # (Auto) 1.64 (0.9-3.2) K/mm3 Bowie # (Auto) 0.5 (0.1-0.6) K/mm3 Eos # (Auto) 0.1 (0-0.3) K/mm3 Baso # (Auto) 0.0 (0.0-0.1) K/mm3 Abs Immat Gran (auto) 0.02 (0.00-0.031) K/mm3 Absolute Neuts (auto) 5.8 (1.3-6.7) K/mm3 Absolute Nucleated RBC 0.0 (
[2023-03-26 15:32] LABS: Basophils Percent Auto 0.5 % (0.2-1.2); Eosinophils Absolute Auto 0.1 K/mm3 (0-0.3); Eosinophils Percent Auto 1.1 % (0-4.4); Hematocrit 40.1 % (42.0-52.0); Hemoglobin 12.6 g/dL (14.0-18.0); Immature Granulocyte Absolute 0.02 K/mm3 (0.00-0.031); Immature Granulocyte Percent A 0.2 % (0-0.5); Lymphocytes Absolute Auto 1.64 K/mm3 (0.9-3.2); Lymphocytes Percent Auto 20.3 % (18.3-44.2); Mean Corpuscular HGB Conc 31.4 g/dl (32-36); Mean Corpuscular Hemoglobin 27.5 pg (26-34); Mean Corpuscular Volume 87.6 fl (80-100); Mean Platelet Volume 10.5 fl (7.4-10.4); Monocytes Absolute Auto 0.5 K/mm3 (0.1-0.6); Monocytes Percent Auto 6.1 % (2.6-8.5); Neutrophils Absolute Auto 5.8 K/mm3 (1.3-6.7); Neutrophils Percent Auto 71.8 % (45.5-73.1); Platelet Count Result 188 k/mm3 (150-375); Red Blood Count 4.58 M/mm3 (4.6-6.20); Red Cell Distribution Width 14.7 % (11.5-14.5); White Blood Count 8.1 K/mm3 (4.5-10.0)
[2023-03-26 15:41] LABS: Alanine Aminotransferase 20 U/L (6-50); Albumin Level 3.9 g/dL (3.5-5.1); Alkaline Phosphatase 82 U/L (38-126); Anion Gap 7 mmol/L (8-16); Aspartate Amino Transferase 22 U/L (17-59); Bilirubin,Total 0.7 mg/dL (0.2-1.3); Blood Urea Nitrogen 18 mg/dL (9-20); Calcium 8.6 mg/dL (8.4-10.2); Carbon Dioxide 26 mmol/L (22-30); Chloride 104 mmol/L (98-107); Estimated CRCL calculation 64 ml/min; Estimated Glomerular Filt Rate > 60; Glucose 124 mg/dL (65-110); Sodium 137 mmol/L (137-145)
[2023-03-26 15:43] LABS: Prothrombin Time 13.7 Seconds (11.1-14.7)
[2023-03-26 15:44] LABS: Partial Thromboplastin Time 27.8 SECONDS (22.3-36.8)
--- NOTE | 2023-03-26 16:23 | ED.HEATRA ---
HPI - Head Injury General Chief complaint: Head Injury Stated complaint: fall/head injury Time Seen by Provider: 03/26/23 15:33 History of Present Illness HPI Narrative: HPI limited by patient's nonverbal status This is a 68-year-old male, with history of stroke, brought in by EMS from his alf after a fall and head injury. Nursing staff at his facility states he was moving in his wheelchair, when he hit a curb, tilting backwards and falling, striking his head. They deny loss of consciousness or other obvious injury. The patient indicates pain of the scalp but has no other obvious complaints. Related Data Home Medications Medication Instructions Recorded Confirmed acetaminophen 160 mg/5 mL oral 640 mg PO QID PRN Pain 06/21/22 02/23/23 suspension atorvastatin 40 mg tablet 40 mg PO DAILY 06/21/22 02/23/23 carvedilol 12.5 mg tablet 12.5 mg PO BID 06/21/22 02/23/23 citalopram 10 mg tablet 10 mg PO DAILY 06/21/22 02/23/23 clonidine HCl 0.1 mg tablet 0.1 mg PO DAILY 06/21/22 02/23/23 clopidogrel 75 mg tablet 75 mg PO DAILY 06/21/22 02/23/23 clotrimazole 1 % topical cream 1 applic topical BID PRN ringworm 06/21/22 02/23/23 glucagon 1 mg solution for 1 mg IM TID PRN Hypoglycemia 06/21/22 02/23/23 injection (Glucagon Emergency Kit) hydrochlorothiazide 12.5 mg tablet 12.5 mg PO DAILY 06/21/22 02/23/23 insulin aspart U-100 100 unit/mL See Protocol subcut TIDWM 06/21/22 02/23/23 subcutaneous solution (Novolog U-100 Insulin aspart) levetiracetam 750 mg tablet 750 mg PO BID 06/21/22 02/23/23 losartan 100 mg tablet 100 mg PO DAILY 06/21/22 02/23/23 Vitamin D3 50 mcg PO DAILY 02/23/23 02/23/23 potassium chloride 20 mEq/15 mL 20 meq PO BID 02/23/23 02/23/23 oral liquid Allergies Allergy/AdvReac Type Severity Reaction Status Date / Time No Known Allergies Allergy Verified 11/22/22 09:53 Review of Systems Review of Systems: Review of systems limited due to patient's nonverbal status PMFSH Past Medical History Medical History COPD (chronic obstructive pulmonary disease) CVA (cerebral vascular accident) Heart failure History of type 2 diabetes mellitus Hyperlipidemia Hypertension Seizures Surgical History Surgical History Surgical history unknown Social History Social History Smoking status: Former smoker Tobacco type: cigarettes Alcohol intake: unknown Substance use: unknown Spiritual care concerns: No Exam Narrative: GENERAL: Well-developed, well-nourished, and in no acute distress. HEAD: Normocephalic, small abrasion of the right parietal scalp, without laceration. EYES: PERRLA and EOMI. ENT: Nares clear, no rhinorrhea or epistaxis. Mucous membranes moist. Oropharynx without tonsillar hypertrophy exudate or other lesions. NECK: Supple. No midline spine tenderness to palpation, no step-off or crepitus CHEST: Clear to auscultation. No respiratory distress. No wheezes rales or rhonchi HEART: Regular rate and rhythm. No murmur heard. Normal peripheral pulses. ABDOMEN: Soft, nontender, nondistended, normal active bowel sounds. EXTREMITIES: Normal range of motion. No edema. SKIN: Warm, dry, no rash. NEURO: Alert and oriented x3. Moving all 4 limbs purposefully. PSYCH: Normal mood and affect. Course Course Emergency Course: 16:23 - CT head and cervical spine negative. Labs unremarkable. I discussed the patient with nursing staff at his alf. They are comfortable with his return to the facility. Discussed return and emergency precautions including signs/symptoms concerning for intracranial hemorrhage. All questions answered to their satisfaction. Vital Signs Vital signs: Vital Signs Pulse Rate 84 03/26/23 14:38 Respiratory Rate 16 03/26/23 14:38 Blood Pressure 122/76 03/26/23 14:38 Puls
== END 2023-03-26 17:40 ==
PROVIDERS: Nurse Practitioner Family; Emergency Provider Preventive Medicine Aerospace Medicine; PCP Hospitalist
DX: S00.03XA Contusion of scalp, initial encounter (principal); V00.811A Fall from moving wheelchair (powered), initial encounter; J44.9 Chronic obstructive pulmonary disease, unspecified; I11.0 Hypertensive heart disease with heart failure; I50.9 Heart failure, unspecified; E11.9 Type 2 diabetes mellitus without complications; E78.5 Hyperlipidemia, unspecified; G40.909 Epilepsy, unspecified, not intractable, without status epilepticus; Z86.73 Personal history of transient ischemic attack (TIA), and cerebral infarction without residual deficits; Z87.891 Personal history of nicotine dependence; Z79.02 Long term (current) use of antithrombotics/antiplatelets; Z79.4 Long term (current) use of insulin
CPT/HCPCS: 36415; 70450; 72125; 80053; 85025; 85610; 85730; 99284

== ENCOUNTER 2023-04-18 15:35 | Emergency (ER) | payer MEDICARE, MEDICAID, SELFPAY ==
--- NOTE | ~2023-04-18 | CT_ITS ---
EXAMINATION: CT brain wo con DATE: 04/18/2023 16:21 INDICATION: Trauma. TECHNIQUE: Computed tomography (CT) of the head was performed without intravenous contrast. The dose- length product was 983.67 mGy-cm. Automated exposure control and iterative reconstruction technique w ere employed. COMPARISON: CT dated 03/26/2023 FINDINGS: Large chronic left hemispheric infarction with encephalomalacia involving the frontal, emiliana etal and occipital lobes. There are scattered moderate periventricular and subcortical white matter c hanges, most likely related to small vessel ischemic disease (microangiopathy). No ventriculomegaly o r midline shift. Study limited by motion artifact. No depressed skull fractures. Paranasal sinuses an d mastoids are pneumatized. IMPRESSION: 1. No acute intracranial abnormality. No significant interval change. Reviewed, dictated and finalized at location B. EOTYPER
--- NOTE | ~2023-04-18 | CT_ITS ---
EXAMINATION: CT cervical spine wo con DATE: 04/18/2023 16:21 INDICATION: Neck pain after trauma TECHNIQUE: Computed tomography (CT) of the cervical spine was performed without intravenous contrast. The dose-length product was 614 mGy-cm. Automated exposure control and iterative reconstruction tech [employer] were employed. COMPARISON: CT dated 03/26/2023 FINDINGS: Vertebral body heights are maintained. There is straightening of cervical lordosis. There i s levoscoliosis. There is multilevel facet and uncinate hypertrophy. Odontoid process is normal. Cran iovertebral junction within normal limits. No evidence for perched facet. IMPRESSION: 1. No acute abnormality of the cervical spine. Reviewed, dictated and finalized at location B. LE PRODUCT MANAGER
[2023-04-18 15:34] VITALS: BP 124/67; PULSE 64; RESP 20; TEMP 36.5
--- NOTE | 2023-04-18 16:13 | ED.GENADULT ---
HPI - General Adult General Chief complaint: Fall Stated complaint: fall Time Seen by Provider: 04/18/23 15:49 History of Present Illness HPI narrative: 68-year-old who presents to the department for evaluation after having a ground level fall. Patient is A&O x1 at baseline. Patient denies any complaints. Patient is on Plavix her nursing staff. Related Data Home Medications Medication Instructions Recorded Confirmed acetaminophen 160 mg/5 mL oral 640 mg PO QID PRN Pain 06/21/22 02/23/23 suspension atorvastatin 40 mg tablet 40 mg PO DAILY 06/21/22 02/23/23 carvedilol 12.5 mg tablet 12.5 mg PO BID 06/21/22 02/23/23 citalopram 10 mg tablet 20 mg PO DAILY 06/21/22 02/23/23 clonidine HCl 0.1 mg tablet 0.1 mg PO DAILY 06/21/22 02/23/23 clopidogrel 75 mg tablet 75 mg PO DAILY 06/21/22 02/23/23 clotrimazole 1 % topical cream 1 applic topical BID PRN ringworm 06/21/22 02/23/23 glucagon 1 mg solution for 1 mg IM TID PRN Hypoglycemia 06/21/22 02/23/23 injection (Glucagon Emergency Kit) hydrochlorothiazide 12.5 mg tablet 12.5 mg PO DAILY 06/21/22 02/23/23 insulin aspart U-100 100 unit/mL See Protocol subcut TIDWM 06/21/22 02/23/23 subcutaneous solution (Novolog U-100 Insulin aspart) levetiracetam 750 mg tablet 750 mg PO BID 06/21/22 02/23/23 losartan 100 mg tablet 100 mg PO DAILY 06/21/22 02/23/23 Vitamin D3 50 mcg PO DAILY 02/23/23 02/23/23 potassium chloride 20 mEq/15 mL 20 meq PO BID 02/23/23 02/23/23 oral liquid insulin glargine-yfgn 100 unit/mL 30 unit subcut QPM 04/18/23 subcutaneous solution megestrol 20 mg tablet mg 04/18/23 Allergies Allergy/AdvReac Type Severity Reaction Status Date / Time No Known Allergies Allergy Verified 04/18/23 15:48 Review of Systems Review of Systems: ROS unobtainable: Yes unobtainable due to medical condition PMFSH Past Medical History Medical History COPD (chronic obstructive pulmonary disease) CVA (cerebral vascular accident) Heart failure History of type 2 diabetes mellitus Hyperlipidemia Hypertension Seizures Surgical History Surgical History Surgical history unknown Social History Social History Smoking status: Former smoker Tobacco type: cigarettes Alcohol intake: unknown Substance use: unknown Spiritual care concerns: No Exam Narrative: APPEARANCE: Well appearing, no pain, no distress, well-nourished. HEAD: normocephalic, atraumatic. EYES: PERRLA/EOMI, conjunctivae clear. NOSE: Normal no drainage EARS:TMS clear with good light reflex. THROAT: Pharynx clear, no exudate. NECK: Supple. No adenopathy, no masses. RESPIRATORY: Airway patent, respirations nonlabored. Clear to auscultation bilaterally, no rales, rhonchi, wheezing. CARDIOVASCULAR: Regular rate and rhythm without murmurs rubs or gallops. ABDOMINAL: Soft, nontender, nondistended, normal bowel sounds MUSCULOSKELETAL: Moves all extremities. Strength/ROM intact, No edema, No calf tenderness. NEURO: Alert. Cranial nerves II through XII intact. Grossly intact SKIN: Warm, dry. Normal Color Course Course Emergency Course: 68-year-old male presents for evaluation after a fall at a local assisted. Patient denies any pain complaint. imaging was negative and patient was discharged back to his care facility. Vital Signs Vital signs: Vital Signs Temperature 97.7 F 04/18/23 15:34 Pulse Rate 64 04/18/23 15:34 Respiratory Rate 20 04/18/23 15:34 Blood Pressure 124/67 04/18/23 15:34 Temperature 97.7 F 04/18/23 15:34 Pulse Rate 70 04/18/23 17:55 Respiratory Rate 20 04/18/23 17:55 Blood Pressure 130/64 04/18/23 17:55 Medical Decision Making Vital Signs Vital Signs: Vital Signs Temperature 97.7 F 04/18/23 15:34 Pulse Rate 64 04/18/23 15:34 Respiratory Rate
[2023-04-18 17:55] VITALS: BP 130/64; PULSE 70; RESP 20
== END 2023-04-18 18:20 | disposition home or self-care (01) ==
PROVIDERS: Emergency Provider Emergency Medicine; PCP Hospitalist
DX: S09.90XA Unspecified injury of head, initial encounter (principal); J44.9 Chronic obstructive pulmonary disease, unspecified; E78.5 Hyperlipidemia, unspecified; E11.9 Type 2 diabetes mellitus without complications; I50.9 Heart failure, unspecified; Z86.73 Personal history of transient ischemic attack (TIA), and cerebral infarction without residual deficits; Z87.891 Personal history of nicotine dependence; Z79.4 Long term (current) use of insulin; W18.30XA Fall on same level, unspecified, initial encounter
CPT/HCPCS: 70450; 72125; 99284

== ENCOUNTER 2023-05-14 15:27 | Emergency (ER) | payer MEDICARE, MEDICAID, SELFPAY ==
--- NOTE | ~2023-05-14 | CT_ITS ---
EXAMINATION: CT cervical spine wo con DATE: 05/14/2023 15:44 INDICATION: Disoriented patient unable to provide history post unwitnessed fall. TECHNIQUE: Computed tomography (CT) of the cervical spine was performed without intravenous contrast. Automated exposure control and iterative reconstruction technique were employed. The dose-length pro duct was 572.03 mGy-cm. COMPARISON: 04/18/2023 FINDINGS: 20 degrees cervical levocurvature. Unchanged straightening of the normal cervical lordosis. No spondy lolisthesis or facet subluxation. Vertebral body heights are normal. No fracture. Moderate disc heigh t loss at C4-5. Mild disc height loss at C5-C6. Multilevel mild to moderate cervical uncovertebral os teoarthritis and mild left-sided and moderate to severe right-sided cervical facet osteoarthritis. Th is contributes to minimal to mild stenosis at a few of the neural foramina on both the right and left posterior disc osteophyte complex at C4-C5 resulting in mild central canal stenosis. 5 mm calcified right thyroid nodule. Small amount of atherosclerotic calcific a cyst at the bilateral carotid duplex . Visualized portion of the upper lungs are clear.. IMPRESSION: 1. 20 degrees cervical levocurvature with mild to moderate spondylosis. No acute osseous abnormality. Reviewed, dictated and finalized at location A. OR SYSTEMS DEVELOPER IMPRESSION: 1. 20 degrees cervical levocurvature with mild to moderate spondylosis. No acut e osseous abnormality.
--- NOTE | ~2023-05-14 | CT_ITS ---
EXAMINATION: CT brain wo con DATE: 05/14/2023 15:41 INDICATION: Status post fall. CVA. History of seizure. TECHNIQUE: Computed tomography (CT) of the head was performed without intravenous contrast. The dose- length product was 756.67 mGy-cm. Automated exposure control and iterative reconstruction technique w ere employed. COMPARISON: CT dated 04/18/2023 FINDINGS: Stable large left chronic hemispheric infarction involving the frontal, parietal and occipi susan lobes. There are scattered moderate periventricular and subcortical white matter changes, most li jens related to small vessel ischemic disease (microangiopathy). No ventriculomegaly or midline shift . There is mucosal thickening of the maxillary and ethmoid sinuses. There is left mastoid effusion. N o depressed skull fractures. IMPRESSION: 1. No acute intracranial abnormality. Reviewed, dictated and finalized at location A. LE ENDECA CONSULTANT
[2023-05-14 16:06] VITALS: BP 168/78; PULSE 71; RESP 14; O2SAT 100
--- NOTE | 2023-05-14 16:41 | ED.FALL ---
HPI - Fall General Chief Complaint: Fall Stated Complaint: fall Time Seen by Provider: 05/14/23 15:49 History of Present Illness HPI Narrative: patient is a 68-year-old male with history of dementia secondary to CVA presents ER after a fall that was unwitnessed. Concern for head injury. Patient without complaint at this time. will attempt to answer questions but is only saying no to this physician. He will follow commands. Related Data Home Medications Medication Instructions Recorded Confirmed acetaminophen 160 mg/5 mL oral 640 mg PO QID PRN Pain 06/21/22 02/23/23 suspension atorvastatin 40 mg tablet 40 mg PO DAILY 06/21/22 02/23/23 carvedilol 12.5 mg tablet 12.5 mg PO BID 06/21/22 02/23/23 citalopram 10 mg tablet 20 mg PO DAILY 06/21/22 02/23/23 clonidine HCl 0.1 mg tablet 0.1 mg PO DAILY 06/21/22 02/23/23 clopidogrel 75 mg tablet 75 mg PO DAILY 06/21/22 02/23/23 clotrimazole 1 % topical cream 1 applic topical BID PRN ringworm 06/21/22 02/23/23 glucagon 1 mg solution for 1 mg IM TID PRN Hypoglycemia 06/21/22 02/23/23 injection (Glucagon Emergency Kit) hydrochlorothiazide 12.5 mg tablet 12.5 mg PO DAILY 06/21/22 02/23/23 insulin aspart U-100 100 unit/mL See Protocol subcut TIDWM 06/21/22 02/23/23 subcutaneous solution (Novolog U-100 Insulin aspart) levetiracetam 750 mg tablet 750 mg PO BID 06/21/22 02/23/23 losartan 100 mg tablet 100 mg PO DAILY 06/21/22 02/23/23 Vitamin D3 50 mcg PO DAILY 02/23/23 02/23/23 potassium chloride 20 mEq/15 mL 20 meq PO BID 02/23/23 02/23/23 oral liquid insulin glargine-yfgn 100 unit/mL 30 unit subcut QPM 04/18/23 subcutaneous solution megestrol 20 mg tablet mg 04/18/23 Allergies Allergy/AdvReac Type Severity Reaction Status Date / Time No Known Allergies Allergy Verified 04/18/23 15:48 Review of Systems Review of Systems: ROS unobtainable: Yes unobtainable due to mental status PMFSH Past Medical History Medical History COPD (chronic obstructive pulmonary disease) CVA (cerebral vascular accident) Heart failure History of type 2 diabetes mellitus Hyperlipidemia Hypertension Seizures Surgical History Surgical History Surgical history unknown Social History Social History Smoking status: Former smoker Tobacco type: cigarettes Alcohol intake: unknown Substance use: unknown Spiritual care concerns: No Exam Narrative: GENERAL: Well-appearing, well-nourished, and in no acute distress. HEAD: Normocephalic, atraumatic. ENT: Mucous membranes moist. NECK: Supple. CHEST: Clear to auscultation. No respiratory distress. HEART: Regular rate and rhythm. Normal peripheral pulses. ABDOMEN: Soft, nontender, nondistended. EXTREMITIES: No tenderness at the hips or knees Bilaterally. Moves arms and issue. SKIN: Warm, dry, no rash. NEURO: Alert and oriented x1. PSYCH: Normal mood and affect. Course Course Emergency Course: imaging and exam without injury. Discharge back to facility. Vital Signs Vital signs: Vital Signs Pulse Rate 71 05/14/23 16:06 Respiratory Rate 14 05/14/23 16:06 Blood Pressure 168/78 H 05/14/23 16:06 Pulse Oximetry 100 05/14/23 16:06 Pulse Rate 71 05/14/23 16:06 Respiratory Rate 14 05/14/23 16:06 Blood Pressure 168/78 H 05/14/23 16:06 Pulse Oximetry 100 05/14/23 16:06 MDM - Fall Imaging Data Radiologist's impression: ITS Impressions Head CT 05/14/23 15:48 IMPRESSION: 1. No acute intracranial abnormality. Cervical Spine CT 05/14/23 15:57 IMPRESSION: 1. 20 degrees cervical levocurvature with mild to moderate spondylosis. No acute osseous abnormality. Discharge Plan Discharge Clinical Impression: Accident due to mechanical fall without injury, Encounter for medical screening ex
== END 2023-05-14 17:04 | disposition home or self-care (01) ==
PROVIDERS: Emergency Provider Emergency Medicine; PCP Hospitalist
DX: Z04.3 Encounter for examination and observation following other accident (principal); F03.90 Unspecified dementia, unspecified severity, without behavioral disturbance, psychotic disturbance, mood disturbance, and anxiety; I69.318 Other symptoms and signs involving cognitive functions following cerebral infarction; E11.9 Type 2 diabetes mellitus without complications; E78.5 Hyperlipidemia, unspecified; I10 Essential (primary) hypertension; J44.9 Chronic obstructive pulmonary disease, unspecified; Z87.891 Personal history of nicotine dependence; Z79.4 Long term (current) use of insulin; M47.812 Spondylosis without myelopathy or radiculopathy, cervical region; W19.XXXA Unspecified fall, initial encounter
CPT/HCPCS: 70450; 72125; 99284

== ENCOUNTER 2023-06-04 18:42 | Emergency (ER) | payer MEDICARE, MEDICAID, SELFPAY ==
--- NOTE | ~2023-06-04 | CT_ITS ---
EXAMINATION: CT brain wo con DATE: 06/04/2023 19:55 INDICATION: Altered mental status post being found down TECHNIQUE: Computed tomography (CT) of the head was performed without intravenous contrast. Sagittal and coronal reconstructions were performed. The mA was adjusted according to patient size. Iterative reconstruction technique was employed. The dose-length product was 681.00 mGy-cm. COMPARISON: head CT dated 05/14/2023 FINDINGS: No fracture. Again seen is a large region of encephalomalacia involving the left frontal, parietal, t emporal and occipital lobes consistent with chronic infarct. There is associated wallerian degenerati on atrophy of the left thalamus and left cerebral peduncle. Small old infarct in the right basal gang andrew. There is moderate scattered white matter hypoattenuation consistent with chronic small vessel is chemic disease. No acute intracranial hemorrhage, acute infarction or abnormal extra axial fluid col lection. Symmetric prominence of the sulci and ventricles consistent with moderate age-appropriate di ffuse cerebral volume loss. No mass/mass effect. Minimal mucosal thickening in the bilateral maxillar y sinuses. Chronic left mastoid effusion. The orbits are normal. IMPRESSION: 1. No fracture or acute intracranial process. 2. Large old infarct in the left cerebral hemisphere and small old infarct in the right basal ganglia . 3. Myxoid changes including moderate diffuse volume loss and moderate scattered white matter hypoatte nuation consistent with chronic small vessel ischemic disease. Reviewed, dictated and finalized at location A. ITY ASSURANCE PROJECT MANAGER IMPRESSION: 1. No fracture or acute intracranial process. 2. Large old infarct in the left cerebral hemisphere and small old infarct in t he right basal ganglia. 3. Myxoid changes including moderate diffuse volume loss and moderate scattered white matter hypoattenuation consistent with chronic small vessel ischemic dis ease.
--- NOTE | ~2023-06-04 | CT_ITS ---
EXAMINATION: CT cervical spine wo con DATE: 06/04/2023 19:56 INDICATION: Found down with altered mental status. TECHNIQUE: Computed tomography (CT) of the cervical spine was performed without intravenous contrast. Automated exposure control and iterative reconstruction technique were employed. The dose-length pro duct was 533.50 mGy-cm. COMPARISON: None FINDINGS: Straightening of the normal cervical lordosis. Mild cervical levocurvature. Vertebral body heights ar e normal. No fracture. Moderate disc height loss at C4-C5. Mild disc height loss at the remaining cer vical levels. There is ossification along the posterior longitudinal ligament at C4 and C5 resulting in mild central canal stenosis. Multilevel mild cervical uncovertebral osteoarthritis. Severe facet o steoarthritis on the right at C3-C4 and C4-C5. Moderate facet osteoarthritis bilaterally at C2-C3. Mi ld facet osteoarthritis and more caudal cervical levels. This results in only minimal 2 mild neural f oraminal stenosis at a few levels in the cervical spine. Small amount of atherosclerotic calcificatio n at the bilateral carotid bulbs. 405 mm rim calcified right thyroid nodule. Cervical soft tissues ar e otherwise unremarkable.Visualized upper lungs are clear. IMPRESSION: 1. Moderate cervical spondylosis. No acute osseous abnormality. Reviewed, dictated and finalized at location A. GER ENT
[2023-06-04 18:45] VITALS: BP 121/57; PULSE 82; RESP 20; TEMP 37.2; O2SAT 99
[2023-06-04 18:47] VITALS: BP 121/57; PULSE 82; RESP 20; O2SAT 95
[2023-06-04 19:00] VITALS: BP 113/53; PULSE 79; RESP 20; O2SAT 96
--- NOTE | 2023-06-04 19:12 | PC.NURSE ---
Report from CRISTINA Cantu. Pt resting quietly laying on left side, eyes open. Voices no complaints at this time. Awaiting ERP eval.
[2023-06-04 19:15] VITALS: BP 149/35; PULSE 80; RESP 15; O2SAT 94
--- NOTE | 2023-06-04 19:20 | ED.GENADULT ---
HPI - General Adult General Chief complaint: Fall Stated complaint: possible fall Time Seen by Provider: 06/04/23 19:09 History of Present Illness HPI narrative: Patient is a 68-year-old gentleman who presents emergency department chief complaint of possible fall. 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 but does not complain of any specific pain Related Data Home Medications Medication Instructions Recorded Confirmed acetaminophen 160 mg/5 mL oral 640 mg PO QID PRN Pain 06/21/22 02/23/23 suspension atorvastatin 40 mg tablet 40 mg PO DAILY 06/21/22 02/23/23 carvedilol 12.5 mg tablet 12.5 mg PO BID 06/21/22 02/23/23 citalopram 10 mg tablet 20 mg PO DAILY 06/21/22 02/23/23 clonidine HCl 0.1 mg tablet 0.1 mg PO DAILY 06/21/22 02/23/23 clopidogrel 75 mg tablet 75 mg PO DAILY 06/21/22 02/23/23 clotrimazole 1 % topical cream 1 applic topical BID PRN ringworm 06/21/22 02/23/23 glucagon 1 mg solution for 1 mg IM TID PRN Hypoglycemia 06/21/22 02/23/23 injection (Glucagon Emergency Kit) hydrochlorothiazide 12.5 mg tablet 12.5 mg PO DAILY 06/21/22 02/23/23 insulin aspart U-100 100 unit/mL See Protocol subcut TIDWM 06/21/22 02/23/23 subcutaneous solution (Novolog U-100 Insulin aspart) levetiracetam 750 mg tablet 750 mg PO BID 06/21/22 02/23/23 losartan 100 mg tablet 100 mg PO DAILY 06/21/22 02/23/23 Vitamin D3 50 mcg PO DAILY 02/23/23 02/23/23 potassium chloride 20 mEq/15 mL 20 meq PO BID 02/23/23 02/23/23 oral liquid insulin glargine-yfgn 100 unit/mL 30 unit subcut QPM 04/18/23 subcutaneous solution megestrol 20 mg tablet mg 04/18/23 Allergies Allergy/AdvReac Type Severity Reaction Status Date / Time No Known Allergies Allergy Verified 04/18/23 15:48 Review of Systems Review of Systems: A 10 system review of systems was completed on the patient and is negative except for what is stated in the HPI. Nursing and ancillary documentation was reviewed. PMFSH Past Medical History Medical History COPD (chronic obstructive pulmonary disease) CVA (cerebral vascular accident) Heart failure History of type 2 diabetes mellitus Hyperlipidemia Hypertension Seizures Surgical History Surgical History Surgical history unknown Social History Social History Smoking status: Former smoker Tobacco type: cigarettes Alcohol intake: unknown Substance use: unknown Spiritual care concerns: No Exam Narrative: GENERAL: Well-appearing, well-nourished, and in no acute distress. HEAD: Normocephalic, atraumatic. EYES: PERRLA and EOMI. ENT: Nares clear, no rhinorrhea or epistaxis. Mucous membranes moist. NECK: Supple. CHEST: Clear to auscultation. No respiratory distress. HEART: Regular rate and rhythm. No murmur heard. Normal peripheral pulses. ABDOMEN: Soft, nontender, nondistended, normal active bowel sounds. EXTREMITIES: Normal range of motion. No edema. SKIN: Warm, dry, no rash. NEURO: No focal deficits. Alert and oriented x1. PSYCH: Normal mood and affect. Course Vital Signs Vital signs: Vital Signs Temperature 37.2 C 06/04/23 18:45 Pulse Rate 82 06/04/23 18:45 Respiratory Rate 20 06/04/23 18:45 Blood Pressure 121/57 L 06/04/23 18:45 Pulse Oximetry 99 06/04/23 18:45 Oxygen Delivery Room Air 06/04/23 18:45 Temperature 37.2 C 06/04/23 18:45 Pulse Rate 82 06/04/23 18:45 Respiratory Rate 20 06/04/23 18:45 Blood Pressure 121/57 L 06/04/23 18:45 Pulse Oximetry 99 06/04/23 18:45 Oxygen Delivery Room Air 06/04/23 18:45 Medical Decision Making MDM Narrative Medical decision making narrative: differential diagno
[2023-06-04 19:30] VITALS: BP 130/58; PULSE 81; RESP 20; O2SAT 94
== END 2023-06-04 21:31 ==
PROVIDERS: Emergency Provider Emergency Medicine; PCP Hospitalist
DX: Z04.3 Encounter for examination and observation following other accident (principal); J44.9 Chronic obstructive pulmonary disease, unspecified; I50.9 Heart failure, unspecified; I11.0 Hypertensive heart disease with heart failure; E11.9 Type 2 diabetes mellitus without complications; E78.5 Hyperlipidemia, unspecified; Z86.73 Personal history of transient ischemic attack (TIA), and cerebral infarction without residual deficits; Z87.891 Personal history of nicotine dependence; Z79.4 Long term (current) use of insulin; M47.812 Spondylosis without myelopathy or radiculopathy, cervical region; W19.XXXA Unspecified fall, initial encounter
CPT/HCPCS: 70450; 72125; 99284

== ENCOUNTER 2023-06-09 20:53 | Emergency (ER) | payer MEDICARE, MEDICAID, SELFPAY ==
--- NOTE | ~2023-06-09 | CT_ITS ---
Noncontrast CT scan of the cervical spine Technique: Multiple contiguous axial [address] images of the cervical spine were obtained and rec onstructed in 2D sagittal and coronal planes on the acquisition scanner. Dose reduction technique was used on this scan by utilizing automated exposure control, adjustment of the mA and/or kV according to patient size. The dose-length product (DLP) was 512.90 mGy-cm. Clinical History: Pain COMPARISON: 06/04/2023 Findings: No fractures or dislocations. Stable degenerative changes from recent prior exam. No preve rtebral soft tissue swelling. Impression: No fracture or subluxation of the cervical spine. Stable degenerative changes as compared to recent prior exam. Reviewed, dictated and finalized at location . PENDENT BEAUTY CONSULTANT Impression: No fracture or subluxation of the cervical spine. Stable degenerative changes as compared to recent prior exam.
--- NOTE | ~2023-06-09 | XR_ITS ---
Portable chest x-ray Comparison: 02/23/2023 Clinical History: Status post fall Findings: Lungs are clear, without focal consolidation or pleural effusion. Cardiomediastinal silho uette is stable. Bones and soft tissues are unremarkable. Impression: Normal chest. Reviewed, dictated and finalized at location . G GRINDER Impression: Normal chest.
--- NOTE | ~2023-06-09 | CT_ITS ---
CT head without contrast Indication: Status post fall COMPARISON: 06/04/2023 Technique: Serial scans were obtained through the brain without the administration of contrast. Dose reduction technique was used on this scan by utilizing automated exposure control and iterative recon struction technique. The dose-length product (DLP) was 681.00 mGy-cm. Findings: Extensive chronic left middle cerebral and left posterior cerebral artery distribution infa rcts are unchanged. There is no evidence of intracranial hemorrhage, mass lesion, or acute infarct. The ventricles and subarachnoid spaces are dilated, consistent with mild atrophy. Low attenuation re gions are seen within the periventricular white matter bilaterally, likely representing changes from chronic microvascular ischemic disease. There is no evidence of edema, mass effect or midline shift. The visualized paranasal sinuses and mastoid air cells are clear. Impression: No intracranial hemorrhage, mass, or acute infarct. Stable extensive chronic left middle cerebral artery and left posterior to artery distribution infarc t. Atrophy and chronic white matter changes, as above. Reviewed, dictated and finalized at location . RE CONSULTANT Impression: No intracranial hemorrhage, mass, or acute infarct. Stable extensive chronic left middle cerebral artery and left posterior to fernando ry distribution infarct. Atrophy and chronic white matter changes, as above.
[2023-06-09 21:00] VITALS: BP 180/77; PULSE 77; RESP 20; TEMP 36.4; O2SAT 100
--- NOTE | 2023-06-09 21:33 | ED.FALL ---
HPI - Fall General Chief Complaint: Fall Stated Complaint: SLID OUT OF WHEELCHAIR, FELL Time Seen by Provider: 06/09/23 20:59 Source: patient, RN notes reviewed and old records reviewed Mode of arrival: EMS Limitations: dementia History of Present Illness HPI Narrative: Patient is a 68 y/o male, with PMH of CVA, dementia, DM, who presents to the ED via EMS with report a fall. patient is a resident of [facility]. Per [place] report, patient is A&OX1 at baseline. Patient reportedly had a fall out of his bed tonight. Unwitnessed. Unknown HI. Patient is on plavix and was sent here for further evaluation. Patient denies pain. Unwilling/unable to answer further questions. Related Data Home Medications Medication Instructions Recorded Confirmed acetaminophen 160 mg/5 mL oral 640 mg PO QID PRN Pain 06/21/22 02/23/23 suspension atorvastatin 40 mg tablet 40 mg PO DAILY 06/21/22 02/23/23 carvedilol 12.5 mg tablet 12.5 mg PO BID 06/21/22 02/23/23 citalopram 10 mg tablet 20 mg PO DAILY 06/21/22 02/23/23 clonidine HCl 0.1 mg tablet 0.1 mg PO DAILY 06/21/22 02/23/23 clopidogrel 75 mg tablet 75 mg PO DAILY 06/21/22 02/23/23 clotrimazole 1 % topical cream 1 applic topical BID PRN ringworm 06/21/22 02/23/23 glucagon 1 mg solution for 1 mg IM TID PRN Hypoglycemia 06/21/22 02/23/23 injection (Glucagon Emergency Kit) hydrochlorothiazide 12.5 mg tablet 12.5 mg PO DAILY 06/21/22 02/23/23 insulin aspart U-100 100 unit/mL See Protocol subcut TIDWM 06/21/22 02/23/23 subcutaneous solution (Novolog U-100 Insulin aspart) levetiracetam 750 mg tablet 750 mg PO BID 06/21/22 02/23/23 losartan 100 mg tablet 100 mg PO DAILY 06/21/22 02/23/23 Vitamin D3 50 mcg PO DAILY 02/23/23 02/23/23 potassium chloride 20 mEq/15 mL 20 meq PO BID 02/23/23 02/23/23 oral liquid insulin glargine-yfgn 100 unit/mL 30 unit subcut QPM 04/18/23 subcutaneous solution megestrol 20 mg tablet mg 04/18/23 Allergies Allergy/AdvReac Type Severity Reaction Status Date / Time No Known Allergies Allergy Verified 04/18/23 15:48 Review of Systems Review of Systems: ROS unobtainable: Yes unobtainable due to mental status PMFSH Past Medical History Medical History COPD (chronic obstructive pulmonary disease) CVA (cerebral vascular accident) Heart failure History of type 2 diabetes mellitus Hyperlipidemia Hypertension Seizures Surgical History Surgical History Surgical history unknown Social History Social History Smoking status: Former smoker Tobacco type: cigarettes Alcohol intake: unknown Substance use: unknown Spiritual care concerns: No Exam Narrative: GENERAL: Chronically ill appearing, non-toxic, in no acute distress. HEAD: Normocephalic, atraumatic. RESPIRATORY: Airway patent, respirations nonlabored. Clear to auscultation bilaterally, no rales, rhonchi, wheezing. No significant focal lung sounds. Occasional cough on exam. CARDIOVASCULAR: Regular rate and rhythm. ABDOMINAL: Soft, nondistended. Normoactive BS. MUSCULOSKELETAL: Moves all extremities. No gross deformities. Atrophy of lower extremities. Scattered scabs, no evidence of abscess /surrounding infection. SKIN: Warm, dry, normal color. NEURO: Alert, shakes head yes/no to questioning. No ataxic movements. PSYCHIATRIC: Somewhat uncooperative, shakes head yes/no. Course Vital Signs Vital signs: Vital Signs Temperature 97.6 F 06/09/23 21:00 Pulse Rate 77 06/09/23 21:00 Respiratory Rate 20 06/09/23 21:00 Blood Pressure 180/77 H 06/09/23 21:00 Pulse Oximetry 100 06/09/23 21:00 Oxygen Delivery Room Air 06/09/23 21:00 Temperature 97.6 F 06/09/23 21:00 Pulse Rate 77 06/09/23 21:00 Respiratory Rate 20 06/09/23 21:00 Blood Pressure 180/77 H 06/09/23 21:00
--- NOTE | 2023-06-09 21:39 | PC.NURSE ---
Attempted to call report to [facility] with no answer.
[2023-06-09 21:44] VITALS: BP 155/71; PULSE 76; RESP 20; O2SAT 100
--- NOTE | 2023-06-09 21:45 | PC.NURSE ---
Attempted to call report to [facility] for the second time with no answer
[2023-06-09 22:43] VITALS: BP 153/73; PULSE 70; RESP 20; O2SAT 100
== END 2023-06-09 22:44 ==
PROVIDERS: Emergency Provider Physician Assistant; PCP Hospitalist
DX: Z04.3 Encounter for examination and observation following other accident (principal); F03.90 Unspecified dementia, unspecified severity, without behavioral disturbance, psychotic disturbance, mood disturbance, and anxiety; J44.9 Chronic obstructive pulmonary disease, unspecified; I11.0 Hypertensive heart disease with heart failure; I50.9 Heart failure, unspecified; E11.9 Type 2 diabetes mellitus without complications; E78.5 Hyperlipidemia, unspecified; Z86.73 Personal history of transient ischemic attack (TIA), and cerebral infarction without residual deficits; Z87.891 Personal history of nicotine dependence; Z79.4 Long term (current) use of insulin; Z79.02 Long term (current) use of antithrombotics/antiplatelets; W06.XXXA Fall from bed, initial encounter
CPT/HCPCS: 70450; 71045; 72125; 99284

== ENCOUNTER 2023-08-31 22:10 | Emergency (ER) | payer MEDICARE, MEDICAID, SELFPAY ==
--- NOTE | ~2023-08-31 | CT_ITS ---
EXAMINATION: CT brain wo con DATE: 08/31/2023 23:49 INDICATION: fall . TECHNIQUE: Computed tomography (CT) of the head was performed without intravenous contrast. The mA wa s adjusted according to patient size. Iterative reconstruction technique was employed. The dose-lengt h product was 756.67 mGy-cm. COMPARISON: 06/09/2023. FINDINGS: No acute intracranial hemorrhage or extra-axial fluid collection. No hydrocephalus, mass, or herniation. No acute ischemic infarct. Unremarkable dural venous sinus attenuation. No acute osseous abnormality. Bilateral mastoid fluid, the remaining aerated spaces are clear. Mild atrophy and chronic white matter change. Atherosclerotic intracranial calcification. Large old l eft MCA and BATTERY TECHNICIAN territory infarcts. Small focus of right periventricular encephalomalacia. Old right basal ganglia lacunar infarct. IMPRESSION: No acute intracranial process. Reviewed, dictated and finalized at location K.
--- NOTE | ~2023-08-31 | CT_ITS ---
EXAMINATION: CT cervical spine wo con DATE: 08/31/2023 23:49 INDICATION: fall TECHNIQUE: Computed tomography (CT) of the cervical spine was performed without intravenous contrast. Automated exposure control and iterative reconstruction technique were employed. The dose-length pro duct was 480.08 mGy-cm. COMPARISON: 06/09/2023. FINDINGS: Vertebral Body Alignment: Intact. Mild reversal of the normal cervical lordosis centered at C4-5. Craniocervical and atlantoaxial alignment: Moderate degenerative change. Alignment intact. Osseous structures/fracture: No evidence of a lytic or blastic process in the visualized spine. No e vidence of acute fracture. Degenerative posterior bridging osteophyte complex at C4-5. Cervical soft tissues: The paraspinal soft tissues planes are maintained. Degenerative changes: Degenerative changes, without severe neural foraminal or central canal narrowin g. IMPRESSION: No acute fracture or traumatic malalignment in the cervical spine. Reviewed, dictated and finalized at location K.
[2023-08-31 22:14] VITALS: BP 128/67; PULSE 76; RESP 16; TEMP 36.2; O2SAT 93
--- NOTE | 2023-09-01 00:18 | ED.FALL ---
HPI - Fall General Chief Complaint: Fall Stated Complaint: glf Time Seen by Provider: 08/31/23 22:40 History of Present Illness HPI Narrative: Patient is a 68-year-old male who presents to the emergency department this evening from his nursing and facility due to a ground level fall. Patient was being transferred from the wheelchair to his bed when he fell. Patient does take blood thinners. Chart review revealed that patient is on Plavix. Patient is wheelchair-bound due to history of CVA. Upon initial evaluation, patient is refusing to answer questions but he is moving all 4 extremities spontaneously and no external evidence of trauma. It is unclear from EMS and snf facility if the patient hit his head. Patient does not appear to be in any distress. There are no other modifying, alleviating, or precipitating factors. Related Data Home Medications Medication Instructions Recorded Confirmed acetaminophen 160 mg/5 mL oral 640 mg PO QID PRN Pain 06/21/22 02/23/23 suspension atorvastatin 40 mg tablet 40 mg PO DAILY 06/21/22 02/23/23 carvedilol 12.5 mg tablet 12.5 mg PO BID 06/21/22 02/23/23 citalopram 10 mg tablet 20 mg PO DAILY 06/21/22 02/23/23 clonidine HCl 0.1 mg tablet 0.1 mg PO DAILY 06/21/22 02/23/23 clopidogrel 75 mg tablet 75 mg PO DAILY 06/21/22 02/23/23 clotrimazole 1 % topical cream 1 applic topical BID PRN ringworm 06/21/22 02/23/23 glucagon 1 mg solution for 1 mg IM TID PRN Hypoglycemia 06/21/22 02/23/23 injection (Glucagon Emergency Kit) hydrochlorothiazide 12.5 mg tablet 12.5 mg PO DAILY 06/21/22 02/23/23 insulin aspart U-100 100 unit/mL See Protocol subcut TIDWM 06/21/22 02/23/23 subcutaneous solution (Novolog U-100 Insulin aspart) levetiracetam 750 mg tablet 750 mg PO BID 06/21/22 02/23/23 losartan 100 mg tablet 100 mg PO DAILY 06/21/22 02/23/23 Vitamin D3 50 mcg PO DAILY 02/23/23 02/23/23 potassium chloride 20 mEq/15 mL 20 meq PO BID 02/23/23 02/23/23 oral liquid insulin glargine-yfgn 100 unit/mL 30 unit subcut QPM 04/18/23 subcutaneous solution megestrol 20 mg tablet mg 04/18/23 Allergies Allergy/AdvReac Type Severity Reaction Status Date / Time No Known Allergies Allergy Verified 04/18/23 15:48 Review of Systems Review of Systems: All systems are reviewed and are negative unless stated otherwise in the HPI. [facility] Past Medical History Medical History COPD (chronic obstructive pulmonary disease) CVA (cerebral vascular accident) Heart failure History of type 2 diabetes mellitus Hyperlipidemia Hypertension Seizures Surgical History Surgical History Surgical history unknown Social History Social History Smoking status: Former smoker Tobacco type: cigarettes Alcohol intake: unknown Substance use: unknown Spiritual care concerns: No Exam Narrative: General: Alert, awake, afebrile, in no acute distress. HEENT: PERRL, no rhinorrhea, no post nasal drip, oropharynx clear. Neck: Trachea midline, no JVD, no lymphadenopathy. Cardiovascular: Regular rate and rhythm, no murmurs, rubs or gallops, no peripheral edema. Respiratory: Clear to auscultation bilaterally, no tachypnea, no wheezing, no rhonchi, no rubs, no respiratory distress. Abdomen: Soft, nontender, nondistended, no rebound, no guarding, no peritoneal signs. Musculoskeletal: No joint swelling or deformity, normal muscle tone. Skin: No rashes or petechia, no signs of infection. Psychiatric: Normal behavior and judgment for situation. Neurological: Alert and oriented to person and place. Follows all commands. No focal deficits appreciated. Course Vital Signs Vital signs: Vital Signs Temperature 97.2 F L 08/31/23 22:14 Pulse Rate 76 08/31/23 22:14 Respiratory Rate 16 08/31/23 22:14 Blood Pressure 128/67 08/31/23 2
[2023-09-01 00:31] VITALS: BP 138/86; PULSE 68; RESP 16; O2SAT 94
--- NOTE | 2023-09-01 00:38 | PC.NURSE ---
RN report given to CRISTINA Mercado at [place].
== END 2023-09-01 01:01 ==
PROVIDERS: Emergency Provider Emergency Medicine; PCP Hospitalist
DX: T14.90XA Injury, unspecified, initial encounter (principal); W04.XXXA Fall while being carried or supported by other persons, initial encounter; Z99.3 Dependence on wheelchair; Z79.02 Long term (current) use of antithrombotics/antiplatelets; Z86.73 Personal history of transient ischemic attack (TIA), and cerebral infarction without residual deficits; E11.9 Type 2 diabetes mellitus without complications; E78.5 Hyperlipidemia, unspecified; I50.9 Heart failure, unspecified; I11.0 Hypertensive heart disease with heart failure; Z79.4 Long term (current) use of insulin; R56.9 Unspecified convulsions
CPT/HCPCS: 70450; 72125; 99284